=== PATIENT | female | born 1975 | race Caucasian/White ===

== ENCOUNTER 2019-08-28 09:25 | Outpatient (CLI) | payer OTHER, SELFPAY ==
--- NOTE | ~2019-08-28 | MM_ITS ---
EXAMINATION: MM screening heather BI w rich HISTORY: Screening mammogram TECHNIQUE: Craniocaudal and mediolateral oblique 3-D tomosynthesis images were obtained and synthetic 2-D images were generated. CAD analysis was submitted and interpreted. COMPARISON: Comparison to multiple prior studies sequentially, with oldest reviewed study dated 02/13. BREAST PARENCHYMAL COMPOSITION: The breasts are heterogeneously dense, which may obscure small masses . FINDINGS: There is no evidence of suspicious mass, calcification, or architectural distortion to sugg est malignancy in either breast. There has been no suspicious interval change. IMPRESSION: 1. No mammographic evidence of malignancy. 2. Recommend routine screening mammography in one year. BI-RADS Category 1: Negative Reviewed, dictated and finalized at location A. UITS ENGINEER
== END 2019-08-28 09:26 | disposition home or self-care (01) ==
LOC: CHSIMG 09:27
PROVIDERS: PCP Internal Medicine; Visit Provider Student in an Organized Health Care Education/Training Program
DX: Z12.31 Encounter for screening mammogram for malignant neoplasm of breast (principal)
CPT/HCPCS: 77063; 77067

== ENCOUNTER 2019-12-10 10:15 | Outpatient (CLI) | payer OTHER, SELFPAY ==
[2019-12-10 10:27] LABS: Add Urine Microscopic? NO; Appearance Urine Clear (Clear); Basophils Absolute Auto 0.06 K/mm3 (0.00-0.10); Basophils Percent Auto 0.9 % (0.0-1.0); Bilirubin Urine Negative (Negative); Blood Urine Negative (Negative); Color Urine Yellow (Yellow); Eosinophils Absolute Auto 0.56 K/mm3 (0.02-0.50); Eosinophils Percent Auto 8.6 % (1.0-6.0); Glucose Urine UA Negative (Negative); Hematocrit 41.3 % (35.0-49.0); Immature Granulocyte Absolute 0.02 K/mm3 (0.00-0.00); Immature Granulocyte Percent A 0.3 % (0.0-0.0); Ketones Urine Negative (Negative); Leukocyte Esterase Ur Negative (Negative); Lymphocytes Absolute Auto 1.77 K/mm3 (1.10-4.50); Lymphocytes Percent Auto 27.2 % (18.0-42.0); Mean Corpuscular HGB Conc 33.9 g/dL (32.0-36.0); Mean Corpuscular Hemoglobin 32.8 pg (27.0-31.0); Mean Corpuscular Volume 96.7 fL (78.0-102.0); Monocytes Absolute Auto 0.55 K/mm3 (0.10-0.90); Monocytes Percent Auto 8.4 % (2.0-11.0); Neutrophils Absolute Auto 3.6 K/mm3 (1.7-7.2); Neutrophils Percent Auto 54.6 % (50.0-70.0); Nitrate Urine Negative (Negative); Platelet Count Result 284 K/mm3 (150-420); Protein Urine Negative (Negative); Red Blood Count 4.27 M/mm3 (4.20-5.40); Red Cell Distribution Width 12.5 % (11.6-14.4); Specific Grav Ur >= 1.030 (1.010-1.020); Urobilinogen Urine 0.2 mg/dL (0.2-1.0); White Blood Count 6.5 K/mm3 (4.8-10.8); pH Urine 5.5 (5.0-8.0)
[2019-12-10 11:38] LABS: Alanine Aminotransferase 20 U/L (14-59); Albumin Level 3.8 g/dL (3.4-5.0); Alkaline Phosphatase 28 U/L (46-116); Anion Gap 14.5 mmol/L (7-16); Aspartate Amino Transferase 16 U/L (15-37); Bilirubin,Total 0.4 mg/dL (0.00-1.00); Blood Urea Nitrogen 17 mg/dL (7-18); Calcium 9.1 mg/dL (8.5-10.1); Carbon Dioxide 25 mmol/L (21-32); Chloride 105 mmol/L (98-108); Estimated Glomerular Filt Rate > 60; Glucose 94 mg/dL (70-99); Osmolality Calculated 291 mOsm/kg (285-295); Potassium 4.5 mmol/L (3.5-5.1); Sodium 140 mmol/L (136-145); Thyroid Stimulating Hormone 1.96 uIU/mL (0.36-3.74); Total Protein 6.7 g/dL (6.4-8.2)
[2019-12-10 11:44] LABS: CRP < 0.2 mg/dL (0.0-0.9)
[2019-12-13 22:18] LABS: Anti Cyclic Citrullinated Pept <16 Units (<20)
== END 2019-12-10 10:16 | disposition home or self-care (01) ==
PROVIDERS: PCP Internal Medicine; Visit Provider Internal Medicine
DX: I73.00 Raynaud's syndrome without gangrene (principal); M25.50 Pain in unspecified joint
CPT/HCPCS: 36415; 80053; 81003; 84443; 85025; 86038; 86140; 86200

== ENCOUNTER 2020-07-13 11:19 | Outpatient (CLI) | payer OTHER, SELFPAY ==
[2020-07-13 22:22] LABS: SARS-CoV-2 RNA PCR Negative
== END 2020-07-13 11:20 | disposition home or self-care (01) ==
LOC: CHSLAB 11:22
PROVIDERS: PCP Internal Medicine; Visit Provider Internal Medicine
DX: Z20.822 Contact with and (suspected) exposure to COVID-19 (principal)
CPT/HCPCS: C9803; U0003

== ENCOUNTER 2020-08-15 10:37 | Outpatient (CLI) | payer OTHER, SELFPAY ==
--- NOTE | ~2020-08-15 | XR_ITS ---
XR chest 2V DATE: 08/15/2020 10:54 INDICATION: Dyspnea TECHNIQUE: PA and lateral chest COMPARISON: 07/20/2011 two-view chest FINDINGS: Normal heart size. No hilar or mediastinal enlargement. No pulmonary infiltrate or consolid ation, pleural effusion or pulmonary vascular congestion or pneumothorax. Mild scoliosis and degenerative change of the thoracic spine. Surgical clips overlie the upper abdomen on the lateral view, most likely due to cholecystectomy. IMPRESSION: No active cardiopulmonary disease Reviewed, dictated and finalized at location A. CHAIN PULLER
[2020-08-15 10:58] LABS: Basophils Absolute Auto 0.08 K/mm3 (0.00-0.10); Basophils Percent Auto 0.9 % (0.0-1.0); Eosinophils Absolute Auto 0.74 K/mm3 (0.02-0.50); Hematocrit 45.4 % (35.0-49.0); Hemoglobin 14.6 g/dL (12.0-15.0); Immature Granulocyte Absolute 0.03 K/mm3 (0.00-0.00); Immature Granulocyte Percent A 0.3 % (0.0-0.0); Lymphocytes Absolute Auto 2.25 K/mm3 (1.10-4.50); Lymphocytes Percent Auto 24.4 % (18.0-42.0); Mean Corpuscular HGB Conc 32.2 g/dL (32.0-36.0); Mean Corpuscular Hemoglobin 31.6 pg (27.0-31.0); Mean Corpuscular Volume 98.3 fL (78.0-102.0); Mean Platelet Volume 9.1 fl (9.2-11.8); Monocytes Absolute Auto 0.63 K/mm3 (0.10-0.90); Monocytes Percent Auto 6.8 % (2.0-11.0); Neutrophils Absolute Auto 5.5 K/mm3 (1.7-7.2); Neutrophils Percent Auto 59.6 % (50.0-70.0); Platelet Count Result 347 K/mm3 (150-420); Red Blood Count 4.62 M/mm3 (4.20-5.40); Red Cell Distribution Width 12.4 % (11.6-14.4); White Blood Count 9.2 K/mm3 (4.8-10.8)
[2020-08-15 11:34] LABS: D Dimer 0.22 mg/L (0.19-0.50)
[2020-08-15 11:36] LABS: BNP 6.1 pg/mL (0-100)
[2020-08-15 11:54] LABS: Alanine Aminotransferase 29 U/L (14-59); Albumin Level 4.3 g/dL (3.4-5.0); Alkaline Phosphatase 34 U/L (46-116); Anion Gap 10 mmol/L (8-16); Aspartate Amino Transferase 18 U/L (15-37); Bilirubin,Total 0.4 mg/dL (0.00-1.00); Blood Urea Nitrogen 13 mg/dL (7-18); CRP < 0.5 mg/dL (0.0-0.9); Calcium 9.6 mg/dL (8.5-10.1); Carbon Dioxide 28 mmol/L (21-32); Chloride 102 mmol/L (98-108); Estimated Glomerular Filt Rate 56; Glucose 89 mg/dL (70-99); Osmolality Calculated 289 mOsm/kg (285-295); Potassium 4.4 mmol/L (3.5-5.1); Sodium 140 mmol/L (136-145); Total Protein 8.1 g/dL (6.4-8.2)
[2020-08-17 13:11] LABS: Reference Lab Test Result NEGATIVE
== END 2020-08-15 10:38 | disposition home or self-care (01) ==
LOC: CHSLAB 10:39
PROVIDERS: PCP Internal Medicine; Visit Provider Internal Medicine
DX: R06.00 Dyspnea, unspecified (principal); R06.2 Wheezing; R53.83 Other fatigue
CPT/HCPCS: 36415; 71046; 80053; 83880; 85025; 85380; 86140; 86769

== ENCOUNTER 2020-08-26 08:29 | Outpatient (CLI) | payer OTHER, SELFPAY ==
--- NOTE | 2020-08-26 08:41 | ECHO_ITS ---
Patient Info Name: Ree Haider Age: 44 years : 1975 Gender: Female Ht: 66 in Wt: 160 lbs BSA: 1.85 m2 HR: 69 bpm BP: 103 / 62 mmHg Heart Rhythm: Sinus Rhythm Technical Quality: Good Exam Date: 08/26/2020 9:46 AM Exam Location: [facility] Patient Status: Outpatient Admit Date: 08/26/2020 Staff Ordering Physician: Eric Mar MD Physicist [place]: Lilly Briscoe RDCS Attending Provider: Eric Mar MD Exam Type: CA echo doppler color flow Study Info Indications R06.00 - Dyspnea, unspecified Complete two-dimensional, color flow and Doppler transthoracic echocardiogram is performed. Strain analysis performed. History/Risk Factors Hypertension: No Dyslipidemia: No Congenital Heart Disease (CHD): No Peripheral Arterial Disease (PAD): No Myocardial Infarction (UT): No Chronic Lung Disease: No Renal Disease: No Coronary Artery Disease (CAD) No Congestive Heart Failure (CHF): No Cardiomyopathy/LV Systolic Dysfunction: No Date of Last Tobacco Use: 08/26/2020 Diabetes Mellitus: No COPD: No Tobacco Use: Current - Every Day If Any Current, Tobacco Type: Cigarettes If Current - Every Day \T\ Cigarettes, Amount: Light Tobacco Use (<10/day) Cerebrovascular Disease: No Deep Vein Thrombosis (DVT): None Dialysis: None Frailty Scale (CSHA): 1: Very Fit Cardiac Arrest: No Summary 1. Complete two-dimensional, color flow and Doppler transthoracic echocardiogram is performed. 2. Left ventricular chamber dimension is normal. 3. Left ventricular systolic function is normal, estimated at 60-65%. 4. The left ventricular diastolic function is normal. 5. E/e' 7 is not elevated. Recommendations * Smoking cessation counseling is recommended for this patient. Left Ventricle E/e' 7 is not elevated. Left ventricular chamber dimension is normal. Left ventricular systolic function is normal, estimated at 60-65%. The left ventricular diastolic function is normal. Right Ventricle Right ventricular chamber dimension is normal. Right ventricular systolic function is normal. Left Atria Left atrial chamber dimension is normal. Right Atria Right atrial chamber dimension is normal. Aortic Valve The aortic valve is trileaflet. There is no aortic valve stenosis. There is no aortic valve regurgitation. Pulmonic Valve There is no pulmonic regurgitation. Mitral Valve There is no mitral valve stenosis. There is no mitral valve regurgitation. Pericardium/Pleural There is no pericardial effusion. Inferior Vena Cava Normal inferior vena cava with >50% collapse upon inspiration consistent with normal right atrial pressure, 5 mmHg. Aorta The aortic root size at the sinus of Valsalva is normal. Left Ventricular Outflow Tract Name Value Normal LVOT 2D LVOT Diameter 2.0 cm LVOT Doppler LVOT Peak Velocity 118 cm/s LVOT Peak Gradient 6 mmHg LVOT Mean Gradient 3 mmHg LVOT VTI 24 cm
== END 2020-08-26 08:30 | disposition home or self-care (01) ==
LOC: CHSIMG 08:31
PROVIDERS: PCP Internal Medicine; Visit Provider Internal Medicine
DX: R06.00 Dyspnea, unspecified (principal); J44.9 Chronic obstructive pulmonary disease, unspecified
CPT/HCPCS: 93306; 94060; 94726; 94729; 95012

== ENCOUNTER 2020-08-31 10:51 | Outpatient (CLI) | payer OTHER, SELFPAY ==
--- NOTE | ~2020-08-31 | MM_ITS ---
EXAMINATION: MM screening heather BI w rich HISTORY: Screening TECHNIQUE: Craniocaudal and mediolateral oblique 3-D tomosynthesis images were obtained and synthetic 2-D images were generated. CAD analysis was submitted and interpreted. COMPARISON: Comparison to multiple prior studies sequentially, with oldest reviewed study dated 02/13. BREAST PARENCHYMAL COMPOSITION: The breasts are heterogeneously dense, which may obscure small masses . FINDINGS: There is no evidence of suspicious mass, calcification, or architectural distortion to sugg est malignancy in either breast. There has been no suspicious interval change. IMPRESSION: 1. No mammographic evidence of malignancy. 2. Recommend routine screening mammography in one year. BI-RADS Category 1: Negative Reviewed, dictated and finalized at location A. ICATION SUPPORT MANAGER
== END 2020-08-31 10:52 | disposition home or self-care (01) ==
LOC: CHSIMG 10:52
PROVIDERS: PCP Internal Medicine; Visit Provider Student in an Organized Health Care Education/Training Program
DX: Z12.31 Encounter for screening mammogram for malignant neoplasm of breast (principal)
CPT/HCPCS: 77063; 77067

== ENCOUNTER 2021-09-14 12:47 | Outpatient (CLI) | payer OTHER, SELFPAY ==
--- NOTE | ~2021-09-14 | MM_ITS ---
EXAMINATION: MM screening [facility] BI w rich HISTORY: Screening mammogram TECHNIQUE: Craniocaudal and mediolateral oblique 3-D tomosynthesis images were obtained and synthetic 2-D images were generated. CAD analysis was submitted and interpreted. COMPARISON: 08/31/2020, 08/28/2019, 08/24/2018 BREAST PARENCHYMAL COMPOSITION: The breasts are heterogeneously dense, which may obscure small masses . FINDINGS: There is no suspicious mass, calcification, or architectural distortion to suggest malignan cy in either breast. There has been no suspicious interval change. IMPRESSION: 1. No mammographic evidence of malignancy. 2. Recommend routine screening mammography in one year. BI-RADS Category 1: Negative Reviewed, dictated and finalized at location A.
== END 2021-09-14 12:48 | disposition home or self-care (01) ==
LOC: CHSIMG 12:49
PROVIDERS: PCP Internal Medicine; Visit Provider Student in an Organized Health Care Education/Training Program
DX: Z12.31 Encounter for screening mammogram for malignant neoplasm of breast (principal)
CPT/HCPCS: 77063; 77067

== ENCOUNTER 2021-11-02 00:03 | Day surgery (SDC) | payer OTHER, SELFPAY ==
[2021-10-19 10:51] VITALS: BMI 24.9
[2021-11-02 06:46] VITALS: BP 117/65; PULSE 98; RESP 16; TEMP 36.1; O2SAT 100
[2021-11-02] MEDS: LACTATED RINGERS 1,000 ML 150 ML IV CONT (06:59)
--- NOTE | 2021-11-02 07:47 | WPDANESEPPF ---
Anes - Initial Pre Proc Eval Procedure: Operation Date: 11/02/21 08:00 Proposed Procedures p Screening Colonoscopy - Celso Engel MD Date/Time: 11/02/21 07:47 Surgeon: Celso Engel MD Pre Op Diagnosis: neoplasm screening Patient Data Age: 45 Gender: F Height: 1.68 m Weight: 70.2 kg Last Vital Signs Temp 97 F L 11/02/21 06:46 Pulse 98 11/02/21 06:46 Resp 16 11/02/21 06:46 BP 117/65 11/02/21 06:46 Pulse Ox 100 11/02/21 06:46 Allergies Allergy/AdvReac Type Severity Reaction Status Date / Time aspirin AdvReac Intermediate N&V Verified 11/02/21 06:45 Home Medications Medication Instructions Recorded Confirmed Type calcium carbonate 600 mg calcium 600 mg PO DAILY 07/23/19 10/19/21 History (1,500 mg) tablet multivitamin 1 tablet PO DAILY 07/23/19 10/19/21 History albuterol sulfate 90 mcg/actuation 1 inh INHALATION Q4-6H PRN 07/29/20 11/02/21 History breath activated powder inhaler fluticasone propionate 50 1 spray INTRANASAL BID 09/01/21 11/02/21 History mcg/actuation nasal spray,suspension montelukast 10 mg tablet 10 mg PO DAILY 09/01/21 10/19/21 History budesonide-formoterol [Symbicort] 1 inh INHALATION DAILY 10/19/21 10/19/21 History famotidine 40 mg PO DAILY 10/19/21 10/19/21 History fexofenadine 180 mg PO DAILY 10/19/21 10/19/21 History Patient hx anesthesia problems: none Family hx anesthesia problems: none Results Review: All pre-operative results and documents have been reviewed as part of the pre-operative evaluation. [facility] Past Medical History Medical History Asthma HPV test positive Surgical History Surgical History History of cholecystectomy History of tubal ligation Family History Family History Mother Family history of pancreatic cancer Father Family history of malignant neoplasm of urinary bladder Family history of hypercholesterolemia Hypertension Grandparent Family history of hypercholesterolemia Hypertension Cerebrovascular accident Carcinoma of colon, Onset Age: 56 Family history of genetic disorder Social History Social History Years smoked: 20 Smoking status: Current every day smoker Tobacco type: cigarettes Second hand tobacco smoke exposure: No Alcohol intake: current Drinks per week: 6 Substance use type: does not use Living arrangements: with family Spiritual care concerns: No Anes - Eval Final PreProcedure Day of Procedure 11/02/21 07:47 Patient weight: normal Heart: regular rate and rhythm Lungs: clear to auscultation Airway: Mallampati scale class II Neurological: alert and oriented Last oral intake: >/= 8 hours ASA classification: II Emergent: no Anesthetic plan: proceed Anesthesia type and monitoring: general GIVS and standard monitoring Results Review: All pre-operative results and documents have been reviewed as part of the pre-operative evaluation. Informed Consent: The patient's anesthetic plan and its attendant risks and benefits were discussed with the patient/family/POA. Questions were solicited and answers provided to the satisfaction of the patient/family/POA.
--- NOTE | 2021-11-02 07:52 | PM.HPGS ---
History of Present Illness History of Present Illness Consent: Risks, benefits, and alternatives have been discussed and questions answered. Patient agrees to proceed with procedure. Chief complaint: neoplasm screening Narrative: Ree Haider is a 45 year old female here for first screening colonoscopy Review of Systems Constitutional: Constitutional: Denies headache(s) and Denies weakness Eyes: Eyes: Denies blurry vision ENT: Reports Normal hearing present, Denies headache(s) and Denies neck pain Cardiovascular: Cardiovascular: Denies chest pain and Denies dyspnea Respiratory: Respiratory: Denies dyspnea Gastrointestinal: Gastrointestinal: Reports no additional gastrointestinal complaints Genitourinary: Genitourinary: Denies dysuria Musculoskeletal: Musculoskeletal: Denies neck pain Integumentary/Breasts: Skin/Breast: Denies dry skin Neurologic: Reports Normal hearing present, Denies headache(s) and Denies weakness Psychiatric: Psychiatric: Denies anxiety Endocrine: Endocrine: Denies change in body appearance Hematologic/Lymphatic: Hematologic/Lymphatic: Denies easy bleeding Allergic/Immunologic: Allergic/Immunologic: Denies urticaria PMFSH Past Medical History Medical History (Updated 11/02/21 @ 07:53 by Celso Engel MD) Asthma Colon cancer screening HPV test positive Surgical History Surgical History History of cholecystectomy History of tubal ligation Family History Family History Mother Family history of pancreatic cancer Father Family history of malignant neoplasm of urinary bladder Family history of hypercholesterolemia Hypertension Grandparent Family history of hypercholesterolemia Hypertension Cerebrovascular accident Carcinoma of colon, Onset Age: 54 Family history of genetic disorder Social History Social History Years smoked: 20 Smoking status: Current every day smoker Tobacco type: cigarettes Second hand tobacco smoke exposure: No Alcohol intake: current Drinks per week: 6 Substance use type: does not use Living arrangements: with family Spiritual care concerns: No Meds Home Medications and Allergies Home Medications Medication Instructions Recorded Confirmed Type calcium carbonate 600 mg calcium 600 mg PO DAILY 07/23/19 10/19/21 History (1,500 mg) tablet multivitamin 1 tablet PO DAILY 07/23/19 10/19/21 History albuterol sulfate 90 mcg/actuation 1 inh INHALATION Q4-6H PRN 07/29/20 11/02/21 History breath activated powder inhaler fluticasone propionate 50 1 spray INTRANASAL BID 09/01/21 11/02/21 History mcg/actuation nasal spray,suspension montelukast 10 mg tablet 10 mg PO DAILY 09/01/21 10/19/21 History budesonide-formoterol [Symbicort] 1 inh INHALATION DAILY 10/19/21 10/19/21 History famotidine 40 mg PO DAILY 10/19/21 10/19/21 History fexofenadine 180 mg PO DAILY 10/19/21 10/19/21 History Allergies Allergy/AdvReac Type Severity Reaction Status Date / Time aspirin AdvReac Intermediate N&V Verified 11/02/21 06:45 Vital Signs Vital Signs - 24 hr 11/02/21 06:46 Temperature 97 F L Pulse Rate 98 Respiratory Rate 16 Blood Pressure 117/65 Pulse Oximetry 100 Exam Const: General: comfortable and no acute distress HENMT: General nose exam: Normal nares present Eyes: General: appearance normal, both eyes and all related structures Neck: Neck: no JVD Resp: Auscultation: clear to auscultation bilaterally Cardio: Rate: regular rate Rhythm: regular rhythm GI: Inspection: non-distended GI Palp: Yes Soft to palpation Skin: General skin exam: normal color Neuro: General: gait normal Speech: normal speech Extrem: General: normal to inspection Psych: Mental Status: mental status grossly normal Assessment and
[2021-11-02 08:17] VITALS: BP 104/68; PULSE 81; RESP 22; O2SAT 100
[2021-11-02 08:27] VITALS: BP 112/57; PULSE 60; RESP 14; O2SAT 100
[2021-11-02 08:37] VITALS: BP 107/65; PULSE 68; RESP 19; O2SAT 100
== END 2021-11-02 08:54 | disposition home or self-care (01) ==
PROVIDERS: PCP Internal Medicine; Visit Provider Internal Medicine Gastroenterology
PROC: 0DJD8ZZ Inspection of Lower Intestinal Tract, Via Natural or Artificial Opening Endoscopic (ICD-10-PCS; CPT 45378; principal; 2021-11-02 08:00)
DX: Z12.11 Encounter for screening for malignant neoplasm of colon (principal); D12.3 Benign neoplasm of transverse colon; K64.8 Other hemorrhoids; J45.909 Unspecified asthma, uncomplicated; F17.210 Nicotine dependence, cigarettes, uncomplicated
CPT/HCPCS: 45385; 88305; J2704; J7120

== ENCOUNTER 2022-09-16 14:39 | Outpatient (CLI) | payer OTHER, SELFPAY ==
--- NOTE | ~2022-09-16 | MM_ITS ---
EXAMINATION: MM screening heather BI w rich HISTORY: Screening mammogram TECHNIQUE: Craniocaudal and mediolateral oblique 3-D tomosynthesis images were obtained and synthetic 2-D images were generated. CAD analysis was submitted and interpreted. COMPARISON: 09/12/2021, 08/31/2020, 08/28/2019 bilateral screening mammogram examinations BREAST PARENCHYMAL COMPOSITION: The breasts are heterogeneously dense, which may obscure small masses . FINDINGS: There is no evidence of suspicious mass, calcification, or architectural distortion to sugg est malignancy in either breast. There has been no suspicious interval change. IMPRESSION: 1. No mammographic evidence of malignancy. 2. Recommend routine screening mammography in one year. BI-RADS Category 1: Negative Reviewed, dictated and finalized at location A.
== END 2022-09-16 14:40 | disposition home or self-care (01) ==
LOC: CHSIMG 14:41
PROVIDERS: PCP Internal Medicine; Visit Provider Obstetrics & Gynecology
DX: Z12.31 Encounter for screening mammogram for malignant neoplasm of breast (principal)
CPT/HCPCS: 77063; 77067

== ENCOUNTER 2022-10-22 08:49 | Outpatient (CLI) | payer OTHER, SELFPAY ==
--- NOTE | ~2022-10-22 | XR_ITS ---
EXAM: XR foot LT min 3V DATE: 10/22/2022 09:12 HISTORY: RECENT PLANTAR FACITITS, HEEL/ GENERAL FOOT PAIN SINCE 09/02 . COMPARISON: None available. FINDINGS: Normal mineralization. No fracture or dislocation. No lytic or blastic lesion. Joint space s are maintained. Minimal plantar enthesopathy. No erosion or periosteal change. Soft tissue swelling over the proximal and medial aspect of the plantar arch. IMPRESSION: Minimal plantar enthesopathy. Soft tissue swelling over the proximal and medial aspect of the plantar arch. Reviewed, dictated and finalized at location K. IMPRESSION: Minimal plantar enthesopathy. Soft tissue swelling over the proxima l and medial aspect of the plantar arch.
[2022-10-22 09:06] LABS: Basophils Absolute Auto 0.08 K/mm3 (0.00-0.10); Basophils Percent Auto 1.1 % (0.0-1.0); Eosinophils Absolute Auto 0.48 K/mm3 (0.02-0.50); Eosinophils Percent Auto 6.9 % (1.0-6.0); Hematocrit 36.5 % (35.0-49.0); Immature Granulocyte Absolute 0.02 K/mm3 (0.00-0.00); Immature Granulocyte Percent A 0.3 % (0.0-0.0); Lymphocytes Absolute Auto 2.19 K/mm3 (1.10-4.50); Lymphocytes Percent Auto 31.5 % (18.0-42.0); Mean Corpuscular HGB Conc 32.9 g/dL (32.0-36.0); Mean Corpuscular Hemoglobin 31.9 pg (27.0-31.0); Mean Corpuscular Volume 97.1 fL (78.0-102.0); Mean Platelet Volume 9.3 fl (9.2-11.8); Monocytes Absolute Auto 0.62 K/mm3 (0.10-0.90); Monocytes Percent Auto 8.9 % (2.0-11.0); Neutrophils Absolute Auto 3.6 K/mm3 (1.7-7.2); Neutrophils Percent Auto 51.3 % (50.0-70.0); Platelet Count Result 312 K/mm3 (150-420); Red Blood Count 3.76 M/mm3 (4.20-5.40); Red Cell Distribution Width 13.2 % (11.6-14.4)
[2022-10-22 09:30] LABS: Appearance Urine Clear (Clear); Bilirubin Urine Negative (Negative); Blood Urine Negative (Negative); Color Urine Light Yellow (Yellow); Glucose Urine UA Negative (Negative); Ketones Urine Negative (Negative); Leukocyte Esterase Ur Negative (Negative); Nitrate Urine Negative (Negative); Protein Urine Negative (Negative); Specific Grav Ur >= 1.030 (1.010-1.020); Urobilinogen Urine 0.2 mg/dL (0.2-1.0)
[2022-10-22 09:34] LABS: Add Urine Microscopic? NO; Alanine Aminotransferase 19 U/L (14-59); Albumin Level 3.4 g/dL (3.4-5.0); Alkaline Phosphatase 32 U/L (46-116); Anion Gap 6 mmol/L (8-16); Aspartate Amino Transferase 13 U/L (15-37); Bilirubin,Total 0.2 mg/dL (0.00-1.00); Blood Urea Nitrogen 19 mg/dL (7-18); Calcium 8.9 mg/dL (8.5-10.1); Carbon Dioxide 31 mmol/L (21-32); Chloride 106 mmol/L (98-108); Cholesterol 164 mg/dL (0-200); Estimated Glomerular Filt Rate > 60; Glucose 97 mg/dL (70-99); HDL Direct 59 mg/dL (40-60); LDL Cholesterol Calculated 96 mg/dL (<130); Osmolality Calculated 298 mOsm/kg (285-295); Potassium 4.5 mmol/L (3.5-5.1); Sodium 143 mmol/L (136-145); Thyroid Stimulating Hormone 1.08 uIU/mL (0.36-3.74); Total Protein 5.8 g/dL (6.4-8.2); Triglycerides 47 mg/dL (0-150)
== END 2022-10-22 08:50 | disposition home or self-care (01) ==
LOC: CHSIMG 08:51
PROVIDERS: PCP Internal Medicine; Visit Provider Internal Medicine
DX: Z00.00 Encounter for general adult medical examination without abnormal findings (principal); M79.672 Pain in left foot
CPT/HCPCS: 36415; 73630; 80053; 80061; 81003; 84443; 85025

== ENCOUNTER 2022-11-29 14:53 | Outpatient (CLI) | payer OTHER, SELFPAY ==
--- NOTE | ~2022-11-29 | US_ITS ---
EXAMINATION: US soft tissue abdomen DATE: 11/29/2022 15:10 INDICATION: Discolored palpable abnormality in the periumbilical region TECHNIQUE: Multiple grayscale and Doppler ultrasound images of the periumbilical region of concern we re obtained. COMPARISON: None FINDINGS: There is increased vascular flow associated with a very superficial 13 x 12 x 5 mm hypoechoic lesion with irregular margins at the region of concern. There is posterior acoustic enhancement in the regio n of the lesion of concern which is located within the superficial subdermal fat with inward bulging of the junction between the more superficial dermal fat and the underlying more hypoechoic subcutaneo us fat. IMPRESSION: 1. Nonspecific 13 x 12 x 5 mm irregular hypoechoic lesion at the region of concern with lesser flow o n color Doppler. This could be either infectious/inflammatory in etiology, malignant or potentially r elated to a vascular malformation. Reviewed, dictated and finalized at location B. IMPRESSION: 1. Nonspecific 13 x 12 x 5 mm irregular hypoechoic lesion at the region of conc giovani with lesser flow on color Doppler. This could be either infectious/inflamma tory in etiology, malignant or potentially related to a vascular malformation.
== END 2022-11-29 14:54 | disposition home or self-care (01) ==
LOC: CHSIMG 14:55
PROVIDERS: PCP Internal Medicine; Visit Provider Nurse Practitioner Family
DX: K42.9 Umbilical hernia without obstruction or gangrene (principal); R10.9 Unspecified abdominal pain
CPT/HCPCS: 76705

== ENCOUNTER 2023-07-08 13:26 | Outpatient (CLI) | payer OTHER, SELFPAY ==
--- NOTE | ~2023-07-08 | XR_ITS ---
Clinical Indication: Cough, asthma PA and lateral views of the chest: Comparison: 08/15/2020 Findings: The lungs are clear, without evidence of focal consolidation or pleural effusion. Cardiome diastinal silhouette is within normal limits. Bones and soft tissues are unremarkable. Impression: Normal chest. Reviewed, dictated and finalized at [facility]. MENT MASON Impression: Normal chest.
[2023-07-08 13:50] LABS: Basophils Absolute Auto 0.06 K/mm3 (0.00-0.10); Basophils Percent Auto 0.8 % (0.0-1.0); Eosinophils Absolute Auto 0.19 K/mm3 (0.02-0.50); Eosinophils Percent Auto 2.6 % (1.0-6.0); Hematocrit 42.4 % (35.0-49.0); Hemoglobin 14.1 g/dL (12.0-15.0); Immature Granulocyte Absolute 0.01 K/mm3 (0.00-0.00); Immature Granulocyte Percent A 0.1 % (0.0-0.0); Lymphocytes Absolute Auto 2.09 K/mm3 (1.10-4.50); Lymphocytes Percent Auto 28.8 % (18.0-42.0); Mean Corpuscular HGB Conc 33.3 g/dL (32.0-36.0); Mean Corpuscular Hemoglobin 31.6 pg (27.0-31.0); Mean Corpuscular Volume 95.1 fL (78.0-102.0); Mean Platelet Volume 9.8 fl (9.2-11.8); Monocytes Percent Auto 9.6 % (2.0-11.0); Neutrophils Absolute Auto 4.2 K/mm3 (1.7-7.2); Neutrophils Percent Auto 58.1 % (50.0-70.0); Platelet Count Result 294 K/mm3 (150-420); Red Blood Count 4.46 M/mm3 (4.20-5.40); Red Cell Distribution Width 12.6 % (11.6-14.4); White Blood Count 7.3 K/mm3 (4.8-10.8)
[2023-07-12 02:24] LABS: Immunoglobulin E 201 kU/L (<=114)
== END 2023-07-08 13:27 | disposition home or self-care (01) ==
LOC: CHSLAB 13:29
PROVIDERS: PCP Internal Medicine; Visit Provider Nurse Practitioner Family
DX: J45.909 Unspecified asthma, uncomplicated (principal); R06.09 Other forms of dyspnea
CPT/HCPCS: 36415; 71046; 82785; 85025; 86003

== ENCOUNTER 2023-09-20 12:44 | Outpatient (CLI) | payer OTHER, SELFPAY ==
--- NOTE | ~2023-09-20 | MM_ITS ---
EXAMINATION: MM screening heather BI w rich HISTORY: Screening TECHNIQUE: Craniocaudal and mediolateral oblique 3-D tomosynthesis images were obtained and synthetic 2-D images were generated. CAD analysis was submitted and interpreted. COMPARISON: Comparison to multiple prior studies sequentially, with oldest reviewed study dated 05/03. BREAST PARENCHYMAL COMPOSITION: Dense: The breasts are heterogeneously dense, which may obscure small masses FINDINGS: The right breast is stable without evidence for malignancy. Stable mass lower inner quadran t of the left breast, middle third. IMPRESSION: 1. Stable left breast mass. 2. Additional mammographic views and possible breast ultrasound are recommended. BI-RADS Category 0: Incomplete: Needs additional imaging evaluation. Reviewed, dictated and finalized at location A. IMPRESSION: 1. Stable left breast mass. 2. Additional mammographic views and possible breast ultrasound are recommended . BI-RADS Category 0: Incomplete: Needs additional imaging evaluation.
== END 2023-09-20 12:45 | disposition home or self-care (01) ==
LOC: CHSIMG 12:45
PROVIDERS: PCP Internal Medicine; Visit Provider Internal Medicine
DX: Z12.31 Encounter for screening mammogram for malignant neoplasm of breast (principal); R92.8 Other abnormal and inconclusive findings on diagnostic imaging of breast
CPT/HCPCS: 77063; 77067

== ENCOUNTER 2023-09-29 09:27 | Outpatient (CLI) | payer OTHER, SELFPAY ==
--- NOTE | ~2023-09-29 | MMUS_ITS ---
EXAMINATION: MM diagnostic heather LT w rich, US breast LT complete HISTORY: Left breast mass TECHNIQUE: Additional 3-D tomosynthesis images of left breast were performed and synthetic 2-D images were generated. CAD analysis was submitted and interpreted. High resolution complete left breast ult rasound examination including all 4 quadrants and subareolar area was performed. (The entire left maryam ast was examined by ultrasound because the PACs system was down, the current and prior mammograms cou ld not be viewed on mammography monitors at the time of the patient's examinations.) COMPARISON: Serial mammograms dating back to 08/31/2020 FINDINGS: MAMMOGRAPHIC FINDINGS: Irregular approximately 2.7 x 4.7 mm mass is noted in the lower inner quadrant of the left breast at mid to posterior depth. ULTRASOUND: 6:00 3 cm from nipple: Parallel oval circumscribed 3.3 x 1.7 x 5.5 mm hypoechoic lesion without shado wing or internal vascularity, benign in appearance Left breast 7:00 4 cm from nipple: Mildly irregular incompletely circumscribed oval 3.2 x 5 x 4.7 mm complex lesion is noted. Due to the irregular mammographic and sonographic margins and incomplete cir cumcision, ultrasound-guided biopsy is recommended. IMPRESSION: 1. 5 mm complex lesion at left breast 7:00 position 4 cm from nipple 2. Ultrasound-guided biopsy of left breast 7:00 lesion is recommended BI-RADS category 4, suspicious findings. Dr. Bo telephoned the report and ultrasound-guided biopsy recommendation on 09/29/2023 [address] Mar Reviewed, dictated and finalized at location A. IMPRESSION: 1. 5 mm complex lesion at left breast 7:00 position 4 cm from nipple 2. Ultrasound-guided biopsy of left breast 7:00 lesion is recommended BI-RADS category 4, suspicious findings. Dr. Bo telephoned the report and ultrasound-guided biopsy recommendation on at [address] Mar
== END 2023-09-29 09:28 | disposition home or self-care (01) ==
LOC: CHSIMG 09:29
PROVIDERS: PCP Internal Medicine; Visit Provider Internal Medicine
DX: N63.20 Unspecified lump in the left breast, unspecified quadrant (principal); R92.8 Other abnormal and inconclusive findings on diagnostic imaging of breast
CPT/HCPCS: 76641; 77061; 77065; G0279

== ENCOUNTER 2024-01-20 11:07 | Outpatient (CLI) | payer OTHER, SELFPAY ==
[2024-01-20 11:35] LABS: Basophils Absolute Auto 0.05 K/mm3 (0.00-0.10); Eosinophils Absolute Auto 0.27 K/mm3 (0.02-0.50); Eosinophils Percent Auto 5.3 % (1.0-6.0); Hematocrit 39.8 % (35.0-49.0); Hemoglobin 13.3 g/dL (12.0-15.0); Immature Granulocyte Absolute 0.01 K/mm3 (0.00-0.00); Immature Granulocyte Percent A 0.2 % (0.0-0.0); Lymphocytes Absolute Auto 2.36 K/mm3 (1.10-4.50); Lymphocytes Percent Auto 46.5 % (18.0-42.0); Mean Corpuscular HGB Conc 33.4 g/dL (32-36); Mean Corpuscular Hemoglobin 30.9 pg (27.0-31.0); Mean Corpuscular Volume 92.3 fL (78.0-102.0); Mean Platelet Volume 9.1 fl (9.2-11.8); Monocytes Absolute Auto 0.36 K/mm3 (0.10-0.90); Monocytes Percent Auto 7.1 % (2.0-11.0); Neutrophils Absolute Auto 2.03 K/mm3 (1.70-7.20); Neutrophils Percent Auto 39.9 % (50.0-70.0); Platelet Count Result 303 K/mm3 (150-420); Red Blood Count 4.31 M/mm3 (4.20-5.40); Red Cell Distribution Width 13.2 % (11.6-14.4); White Blood Count 5.1 K/mm3 (4.8-10.8)
[2024-01-20 12:08] LABS: Iron 87 ug/dL (50-170); Percent Iron Saturation 25 % (12-57); Vitamin B12 268 pg/mL (193-986)
[2024-01-25 11:18] LABS: Vitamin D 1,25 (OH)2 Total 61 pg/mL (18-72); Vitamin D2 1,25 (OH)2 <8 pg/mL; Vitamin D3 1,25 (OH)2 61 pg/mL
== END 2024-01-20 11:08 | disposition home or self-care (01) ==
LOC: CHSLAB 11:09
PROVIDERS: PCP Internal Medicine; Visit Provider Nurse Practitioner Family
DX: J30.9 Allergic rhinitis, unspecified (principal); J45.909 Unspecified asthma, uncomplicated; R53.83 Other fatigue
CPT/HCPCS: 36415; 82607; 82652; 82746; 83540; 83550; 85025

== ENCOUNTER 2024-02-15 13:43 | Emergency (ER) | payer OTHER, SELFPAY ==
[2024-02-15 13:43] VITALS: PULSE 92; RESP 16; TEMP 36.4; O2SAT 99
--- NOTE | 2024-02-15 13:59 | ED.SKABFB ---
HPI - Skin/Abscess/Foreign Bdy General Chief complaint: Skin/Abscess/Foreign Body Stated complaint: abdominal hernia with pain Time Seen by Provider: 02/15/24 13:53 Source: patient Mode of arrival: ambulatory Limitations: no limitations History of Present Illness HPI narrative: this is 48-year-old female who presents with nonfluctuant bread firm area just above her umbilicus with no drainage there is some warmth and tenderness with palpation with no fever chills. Patient has a history of cholecystectomy months ago and has this area that initially was a pea sized and has increased over the last several months. complaint: abscess/boil Onset (ago): month(s) Severity: mild Related Data Home Medications Medication Instructions Recorded Confirmed multivitamin (Daily Multi-Vitamin 1 tablet PO DAILY 07/23/19 12/13/23 tablet) albuterol sulfate 90 mcg/actuation 1 inh inhalation Q4-6H PRN 07/29/20 12/13/23 breath activated powder inhaler Shortness Of Breath fluticasone propionate 50 1 spray intranasal BID 09/01/21 12/13/23 mcg/actuation nasal spray,suspension (Flonase Allergy Relief) montelukast 10 mg tablet 10 mg PO DAILY 09/01/21 12/13/23 (Singulair) fexofenadine 180 mg tablet 180 mg PO DAILY 10/19/21 12/13/23 bupropion HCl 150 mg tablet,12 hr 150 mg PO DAILY 12/20/22 12/13/23 sustained-release escitalopram oxalate 20 mg tablet 20 mg PO DAILY 12/20/22 12/13/23 cholecalciferol (vitamin D3) 25 25 mcg PO DAILY 06/09/23 12/13/23 mcg (1,000 unit) capsule famotidine 40 mg tablet 20 mg PO DAILY 10/18/23 12/13/23 Allergies Allergy/AdvReac Type Severity Reaction Status Date / Time Sulfa (Sulfonamide Allergy Severe Unknown Verified 12/13/23 09:11 Antibiotics) aspirin Allergy Severe Unknown Uncoded 10/18/23 13:32 Review of Systems Review of Systems: All systems reviewed & are unremarkable except as noted in HPI and below PMFSH Past Medical History Medical History Asthma Colon cancer screening Depression with anxiety GERD (gastroesophageal reflux disease) HPV test positive Surgical History Surgical History History of cholecystectomy History of tonsillectomy History of tubal ligation Family History Family History Mother Family history of pancreatic cancer Father Family history of malignant neoplasm of urinary bladder Family history of hypercholesterolemia Hypertension Alcoholism Depression Grandparent Family history of hypercholesterolemia Hypertension Cerebrovascular accident Carcinoma of colon, Onset Age: 56 Family history of genetic disorder Sibling Depression Grandparent Alcoholism Cancer Grandparent Alcoholism Hypertension Depression Heart disease Cerebrovascular accident Social History Social History Smoking packs per day: 0.5 Smoking cigarettes per day: 10.0 Years smoked: 13 Smoking pack-years: 6.50 Smoking status: Current every day smoker Tobacco type: cigarettes Second hand tobacco smoke exposure: No Alcohol intake: current Drinks per week: 6 Substance use type: does not use Living arrangements: with family Occupation/Education: occupation Additional occupation/education comments: [employer] Spiritual care concerns: No Exam Const: General: healthy appearing, no acute distress and alert Nutritional Appearance: well nourished Orientation/consciousness: patient oriented x3 Chest: Chest palpation & inspection: normal inspection of the chest Resp: Effort & Inspection: normal respiratory effort Auscultation: clear to auscultation bilaterally Cardio: Rate: regular rate Rhythm: regular rhythm GI: Auscultation: normal bowel sounds Skin: Wounds: wounds noted Other: Red warm tender area nonfluctuan
[2024-02-15 14:03] VITALS: BP 115/84
[2024-02-15] MEDS: cefTRIAXone 1 GM, LIDOCAINE HCL 1% LOCAL INJ 2.1 ML IM (14:14)
== END 2024-02-15 14:17 | disposition home or self-care (01) ==
PROVIDERS: Emergency Provider Emergency Medicine; PCP Internal Medicine
DX: L02.216 Cutaneous abscess of umbilicus (principal); F17.210 Nicotine dependence, cigarettes, uncomplicated
CPT/HCPCS: 96372; 99283; J0696

== ENCOUNTER 2024-02-23 09:57 | Outpatient (CLI) | payer OTHER, SELFPAY ==
[2024-02-23 10:11] LABS: Basophils Absolute Auto 0.05 K/mm3 (0.00-0.10); Basophils Percent Auto 0.7 % (0.0-1.0); Eosinophils Absolute Auto 0.27 K/mm3 (0.02-0.50); Eosinophils Percent Auto 3.6 % (1.0-6.0); Hematocrit 41.9 % (35.0-49.0); Immature Granulocyte Absolute 0.03 K/mm3 (0.00-0.00); Immature Granulocyte Percent A 0.4 % (0.0-0.0); Lymphocytes Absolute Auto 1.96 K/mm3 (1.10-4.50); Lymphocytes Percent Auto 26.3 % (18.0-42.0); Mean Corpuscular HGB Conc 33.4 g/dL (32-36); Mean Corpuscular Hemoglobin 30.8 pg (27.0-31.0); Mean Corpuscular Volume 92.1 fL (78.0-102.0); Mean Platelet Volume 9.2 fl (9.2-11.8); Monocytes Absolute Auto 0.54 K/mm3 (0.10-0.90); Monocytes Percent Auto 7.3 % (2.0-11.0); Neutrophils Absolute Auto 4.59 K/mm3 (1.70-7.20); Neutrophils Percent Auto 61.7 % (50.0-70.0); Platelet Count Result 331 K/mm3 (150-420); Red Blood Count 4.55 M/mm3 (4.20-5.40); Red Cell Distribution Width 12.7 % (11.6-14.4); White Blood Count 7.4 K/mm3 (4.8-10.8)
[2024-02-23 10:44] LABS: Alanine Aminotransferase 11 U/L (14-59); Albumin Level 3.9 g/dL (3.4-5.0); Alkaline Phosphatase 41 U/L (46-116); Anion Gap 10 mmol/L (4-12); Aspartate Amino Transferase 15 U/L (15-37); Bilirubin,Total 0.2 mg/dL (0.00-1.00); Blood Urea Nitrogen 16 mg/dL (7-18); CRP 0.7 mg/dL (0.0-0.9); Calcium 9.5 mg/dL (8.5-10.1); Carbon Dioxide 30 mmol/L (21-32); Chloride 101 mmol/L (98-108); Estimated Glomerular Filt Rate > 60; Glucose 134 mg/dL (70-99); Osmolality Calculated 295 mOsm/kg (285-295); Potassium 3.9 mmol/L (3.5-5.1); Sodium 141 mmol/L (136-145); Total Protein 6.6 g/dL (6.4-8.2)
== END 2024-02-23 09:58 | disposition home or self-care (01) ==
LOC: CHSLAB 09:59
PROVIDERS: PCP Internal Medicine; Visit Provider Internal Medicine
DX: R19.00 Intra-abdominal and pelvic swelling, mass and lump, unspecified site (principal)
CPT/HCPCS: 36415; 80053; 85025; 86140

== ENCOUNTER 2024-03-18 06:28 | Day surgery (SDC) | payer OTHER, SELFPAY ==
[2024-03-15 11:19] VITALS: BMI 27.1
--- NOTE | 2024-03-18 06:50 | WPDANESEPPF ---
Anes - Initial Pre Proc Eval Procedure: Operation Date: 03/18/24 08:45 Proposed Procedures p Excision 1cm Abdominal Skin Lesion - John Merida DO Date/Time: 03/18/24 06:50 Surgeon: John Merida DO Pre Op Diagnosis: 1cm Skin Lesion Patient Data Age: 48 Gender: F Height: 1.68 m Weight: 76.4 kg Allergies Allergy/AdvReac Type Severity Reaction Status Date / Time Sulfa (Sulfonamide Allergy Severe Unknown Verified 03/18/24 07:15 Antibiotics) aspirin AdvReac Intermediate Other Verified 03/18/24 07:15 Home Medications Medication Instructions Recorded Confirmed Type multivitamin (Daily Multi-Vitamin 1 tablet PO DAILY 07/23/19 03/18/24 History tablet) albuterol sulfate 90 mcg/actuation 1 inh inhalation Q4-6H PRN 07/29/20 03/18/24 History breath activated powder inhaler Shortness Of Breath montelukast 10 mg tablet 10 mg PO DAILY 09/01/21 03/18/24 History (Singulair) fexofenadine 180 mg tablet 180 mg PO DAILY 10/19/21 03/18/24 History escitalopram oxalate 20 mg tablet 20 mg PO DAILY 12/20/22 03/18/24 History albuterol sulfate 2.5 mg/3 mL 2.5 mg (3 mL) inhalation QID PRN 06/09/23 03/18/24 Rx (0.083 %) solution for nebulization shortness of breath or wheezing #360 mL cholecalciferol (vitamin D3) 25 25 mcg PO DAILY 06/09/23 03/18/24 History mcg (1,000 unit) capsule nebulizer accessories #1 ea 06/09/23 03/08/24 Rx famotidine 40 mg tablet 20 mg PO DAILY 10/18/23 03/18/24 History Trelegy Ellipta 200 mcg-62.5 See Rx Instructions .Route 12/04/23 03/18/24 Rx mcg-25 mcg powder for inhalation .COMPLEX #60 ea (imltwgudmfp-rgzilpisp-grsumeud) Airsupra 90 mcg-80 mcg/actuation 2 inh inhalation QID 30 days #10.7 12/13/23 03/18/24 Rx HFA aerosol inhaler grams (albuterol-budesonide) Fasenra Pen 30 mg/mL subcutaneous 30 mg subcut Q28D #1 mL 01/22/24 03/18/24 Rx auto-injector (benralizumab) epinephrine 0.3 mg/0.3 mL 0.3 mg (0.3 mL) IM ONCE #2 ea 01/22/24 03/18/24 Rx injection, auto-injector azelastine 137 mcg-fluticasone 50 1 spray intranasal BID #23 grams 02/08/24 03/18/24 Rx mcg/spray nasal spray (Dymista) Patient hx anesthesia problems: none Family hx anesthesia problems: none Results Review: All pre-operative results and documents have been reviewed as part of the pre-operative evaluation. [facility] Past Medical History Medical History (Updated 03/18/24 @ 06:50 by Laith Mathew DO) Asthma Colon cancer screening Depression with anxiety GERD (gastroesophageal reflux disease) HPV test positive VANDANA (obstructive sleep apnea) Surgical History Surgical History History of cholecystectomy History of tonsillectomy History of tubal ligation Family History Family History Mother Family history of pancreatic cancer Father Family history of malignant neoplasm of urinary bladder Family history of hypercholesterolemia Hypertension Alcoholism Depression Grandparent Family history of hypercholesterolemia Hypertension Cerebrovascular accident Carcinoma of colon, Onset Age: 56 Family history of genetic disorder Sibling Depression Grandparent Alcoholism Cancer Grandparent Alcoholism Hypertension Depression Heart disease Cerebrovascular accident Social History Social History (Updated 03/15/24 @ 09:25 by Theresa Nava [facility]) Smoking packs per day: 0.5 Smoking cigarettes per day: 10.0 Years smoked: 13 Smoking pack-years: 6.50 Smoking status: Current every day smoker Tobacco type: cigarettes Second hand tobacco smoke exposure: Yes Alcohol intake: current Drinks per week: 6 Substance use type: does not use Do You Feel Safe in your Home?: Yes Lack of Transportation: No Lack of Food: Never True Current Housing: I Have Housing Concerned About Future Housing: No Difficulty Paying Gas/Electric B
[2024-03-18 07:28] VITALS: BP 114/83; PULSE 90; RESP 16; TEMP 36.6; O2SAT 100; BMI 26.6
--- NOTE | 2024-03-18 07:34 | WPDHPUPDATE1 ---
History and Physical Update Update Date/Time: 03/18/24 07:34 History and Physical has been reviewed, including an updated exam of the patient. There are NO changes in the patient's condition. Risks, benefits, and alternatives have been discussed and questions answered. Patient agrees to proceed with procedure.
[2024-03-18] MEDS: LACTATED RINGERS 1,000 ML 30 ML IV CONT (07:47)
[2024-03-18] MEDS: LIDO 1%/EPINEPHRINE 1:100,000 50 ML VIAL 15 ML INFILTRATE (08:58)
[2024-03-18 09:17] VITALS: BP 105/63; PULSE 74; RESP 15; O2SAT 100
--- NOTE | 2024-03-18 09:22 | WPDANESPN ---
Anes - Prog Note Post-Op Date/Time: 03/18/24 09:22 Cardiovascular status: normal Respiratory status: normal Airway patency: baseline Mental status: baseline Post-Op hydration status: normal Vital Signs: Last Vital Signs Temp 36.6 C 03/18/24 07:28 Pulse 74 03/18/24 09:17 Resp 15 03/18/24 09:17 BP 105/63 03/18/24 09:17 Pulse Ox 100 03/18/24 09:17 O2 Del Method Room Air 03/18/24 09:17 Pain Score (VAS): 0 Post-procedural complaints: none Patient Feedback: Patient satisfied with anesthetic care. Other Findings: Patient vital signs back to baseline. Patient denies nausea and vomiting. Patient's pain under control. Patient OK for discharge.
--- NOTE | 2024-03-18 09:24 | P.OP_ITS ---
Procedure Note - Detailed Date of Procedure 03/18/24 Pre-op Diagnosis 1cm Abdominal Skin Lesion Post-op Diagnosis Same Procedure Performed Excision of 1 cm abdominal skin lesion Surgeon John Merida, DO Anesthesia MAC and Local ( 1% lidocaine with epinephrine) Indications this is a 48-year-old woman who presented with a skin lesion on her abdomen just superior to her umbilicus that was causing intermittent redness and pain. She would also have some occasional clear drainage. She had been placed on an tibiotics a couple times which would help with the flare ups, but the lesion kept coming back. Discussions were made with the patient about treatment options and decision was made to proceed with excision of 1 cm abdominal skin lesion. Findings The 1 cm abdominal skin lesion was completely excised. This appeared to be possibly a chronic granuloma or chronic abscess. It was completely excised with adequate margins and sent to the lab for pathology. No deep underlying abnormalities were noted. Description of Procedure Procedure as well as risks, benefits, and alternatives were discussed with the patient. Written consent was obtained and placed in chart prior to procedure. Patient was brought back to surgical suite. She was placed supine on operating table. Time-out was done to confirm patient and procedure. IV sedation was administered by the anesthesia department. Her abdomen was prepped and draped in sterile fashion using chlorhexidine prep. 1% lidocaine with epinephrine was infiltrated locally around the skin lesion. An elliptical incision was made around the skin lesion wide enough to completely excise it. The total width of the excision was 1 cm. The skin lesion was completely excised with the 15 blade scalpel and sent to the lab for pathology. Electrocautery was then used for hemostasis. The deep dermis was reapproximated using 3-0 Vicryl inverted interrupted sutures. Skin was then approximated using 4-0 Monocryl running subcuticular suture. Exofin glue was then applied on top. The patient was then awakened from anesthesia and transferred to recovery. Estimated Blood Loss 5 Pathology Yes ( 1 cm abdominal skin lesion) Complications No immediate complications Condition Stable Disposition Same day [facility] Billing Surgery - Charge Forward: Surgery Billing
[2024-03-18 09:27] VITALS: BP 105/56; PULSE 65; RESP 16; O2SAT 100
[2024-03-18 09:37] VITALS: BP 112/65; PULSE 67; RESP 16; O2SAT 100
== END 2024-03-18 10:02 | disposition home or self-care (01) ==
PROVIDERS: PCP Internal Medicine; Visit Provider Surgery
PROC: (CPT 11401; principal; 2024-03-18 08:45)
DX: D48.5 Neoplasm of uncertain behavior of skin (principal)
CPT/HCPCS: 11401; 12031

== ENCOUNTER 2024-03-19 07:41 | Outpatient (NON) | payer OTHER, SELFPAY | END 2024-03-19 07:42 | disposition home or self-care (01) | PROVIDERS: PCP Internal Medicine; Visit Provider Surgery | DX: L72.0 Epidermal cyst (principal) | CPT/HCPCS: 88305 ==

== ENCOUNTER 2024-04-10 10:26 | Outpatient (CLI) | payer OTHER, SELFPAY ==
--- NOTE | ~2024-04-10 | XR_ITS ---
Clinical Indication: Shortness of breath PA and lateral views of the chest: Comparison: 07/08/2023 Findings: The lungs are clear, without evidence of focal consolidation or pleural effusion. Cardiome diastinal silhouette is within normal limits. Bones and soft tissues are unremarkable. Impression: Normal chest. Reviewed, dictated and finalized at location . Impression: Normal chest.
[2024-04-10 10:44] LABS: Basophils Absolute Auto 0.01 K/mm3 (0.00-0.10); Basophils Percent Auto 0.1 % (0.0-1.0); Eosinophils Absolute Auto 0.01 K/mm3 (0.02-0.50); Eosinophils Percent Auto 0.1 % (1.0-6.0); Hematocrit 42.3 % (35.0-49.0); Immature Granulocyte Absolute 0.06 K/mm3 (0.00-0.00); Immature Granulocyte Percent A 0.4 % (0.0-0.0); Lymphocytes Absolute Auto 1.76 K/mm3 (1.10-4.50); Lymphocytes Percent Auto 12.5 % (18.0-42.0); Mean Corpuscular HGB Conc 33.1 g/dL (32-36); Mean Corpuscular Hemoglobin 30.8 pg (27.0-31.0); Mean Corpuscular Volume 93.2 fL (78.0-102.0); Mean Platelet Volume 9.2 fl (9.2-11.8); Monocytes Absolute Auto 0.86 K/mm3 (0.10-0.90); Monocytes Percent Auto 6.1 % (2.0-11.0); Neutrophils Absolute Auto 11.34 K/mm3 (1.70-7.20); Neutrophils Percent Auto 80.8 % (50.0-70.0); Platelet Count Result 361 K/mm3 (150-420); Red Blood Count 4.54 M/mm3 (4.20-5.40); Red Cell Distribution Width 12.8 % (11.6-14.4)
[2024-04-10 11:21] LABS: Anion Gap 9 mmol/L (4-12); Blood Urea Nitrogen 18 mg/dL (7-18); Calcium 9.7 mg/dL (8.5-10.1); Carbon Dioxide 29 mmol/L (21-32); Chloride 103 mmol/L (98-108); Estimated Glomerular Filt Rate > 60; Glucose 98 mg/dL (70-99); Osmolality Calculated 293 mOsm/kg (285-295); Potassium 3.5 mmol/L (3.5-5.1); Sodium 141 mmol/L (136-145)
== END 2024-04-10 10:27 | disposition home or self-care (01) ==
LOC: CHSLAB 10:28
PROVIDERS: PCP Internal Medicine; Visit Provider Nurse Practitioner Family
DX: R06.02 Shortness of breath (principal); R05.9 Cough, unspecified
CPT/HCPCS: 36415; 71046; 80048; 85025

== ENCOUNTER 2024-05-14 16:10 | Outpatient (CLI) | payer OTHER, SELFPAY ==
[2024-05-14 16:29] LABS: Hematocrit 39.5 % (35.0-49.0); Mean Corpuscular HGB Conc 32.9 g/dL (32-36); Mean Corpuscular Hemoglobin 30.7 pg (27.0-31.0); Mean Corpuscular Volume 93.4 fL (78.0-102.0); Mean Platelet Volume 9.1 fl (9.2-11.8); Platelet Count Result 307 K/mm3 (150-420); Red Blood Count 4.23 M/mm3 (4.20-5.40); Red Cell Distribution Width 13.2 % (11.6-14.4); White Blood Count 5.8 K/mm3 (4.8-10.8)
[2024-05-14 16:47] LABS: Alanine Aminotransferase 23 U/L (14-59); Albumin Level 3.4 g/dL (3.4-5.0); Alkaline Phosphatase 38 U/L (46-116); Anion Gap 10 mmol/L (4-12); Aspartate Amino Transferase 14 U/L (15-37); Bilirubin,Total 0.3 mg/dL (0.00-1.00); Blood Urea Nitrogen 12 mg/dL (7-18); CRP 0.9 mg/dL (0.0-0.9); Calcium 9.1 mg/dL (8.5-10.1); Carbon Dioxide 29 mmol/L (21-32); Chloride 106 mmol/L (98-108); Estimated Glomerular Filt Rate > 60; Glucose 83 mg/dL (70-99); Osmolality Calculated 298 mOsm/kg (285-295); Potassium 3.7 mmol/L (3.5-5.1); Sodium 145 mmol/L (136-145); Total Protein 6.1 g/dL (6.4-8.2)
[2024-05-15 09:13] LABS: Immunoglobulin A 94 mg/dL (47-310); Immunoglobulin G 610 mg/dL (600-1640); Immunoglobulin M 107 mg/dL (50-300)
== END 2024-05-14 16:11 | disposition home or self-care (01) ==
PROVIDERS: PCP Internal Medicine; Visit Provider Internal Medicine
DX: J06.9 Acute upper respiratory infection, unspecified (principal)
CPT/HCPCS: 36415; 80053; 82784; 85027; 86140

== ENCOUNTER 2024-08-07 14:33 | Outpatient (CLI) | payer OTHER, SELFPAY ==
[2024-08-07 15:17] LABS: Strep Group A RT-PCR NOT DETECTED (Negative)
--- OUTSIDE RECORDS SUMMARY | 2024-08-07 15:18 | XMS_ITS | Patient Health Summary ---
Author Organization [facility] Address [address] [place] [address] Care Team Providers Care Service Girl Name Role Phone Gildardo Dolan MD Primary Care Provider [phone] Gildardo Dolan MD Unavailable [phone] Note from [facility],non-owned Affiliates and Associated Physician Practices is amultiple site organization consisting of ambulatory clinics and hospital sitesin [place], [place], [place] and [place]. This disclosure is being madepursuant to the Care Everywhere program and may not contain all information available regarding this patient. Last updated 18.[facility] Allergies * Aspirin(GI Discomfort) Medications * Be aware that medications may not be up to date on this document. Alwaysverify current medications with the patient. * albuterol HFA (PROVENTIL;VENTOLIN;PROAIR) 108 (90 Base) MCG/ACT inhaler (Started 04/10/2020) Inhale 10 g by mouth as needed * montelukast (SINGULAIR) 10 MG tablet(Started 04/10/2020) Take 10 tablets by mouth 2 times daily * fluticasone propionate (FLONASE) 50 MCG/ACT nasal spray(Started 04/10/2020) [place] 180 sprays into each nostril 1 Before Breakfast, 2 Before Dinner Active Problems No known active problems Social History Tobacco Use Types Packs/Day Years Used Date Smoking Tobacco: Every Day Cigarettes Smokeless Tobacco: Never Alcohol Use Standard Drinks/Week Comments Yes 0 (1 standard drink = 0.6 oz pur e alcohol) 6 Sex and Gender Information Value Date Recorded Sex Assigned at Not on file Gender Identity Not on file Sexual Orientation Not on file Care Teams Service Girl Relationship Specialty Start Date End Date Gildardo Dolan MD PCP - General 02/26/20 Gildardo Dolan MD 02/26/20
--- OUTSIDE RECORDS SUMMARY | 2024-08-07 15:18 | XMS_ITS | Referral Summary ---
Author Organization [facility] Address [address] [place] [address] Care Team Providers Care Bottle Cleaner Name Role Phone Gildardo Dolan MD Primary Care Provider [phone] Gildardo Dolan MD Unavailable [phone] Source Comments [facility],non-owned Affiliates and Associated Physician Practices is amultiple site organization consisting of ambulatory clinics and hospital sitesin [place], [place], [place] and [place]. This disclosure is being madepursuant to the Care Everywhere program and may not contain all information available regarding this patient. Last updated 18.[facility] Allergies Active Allergy Reactions Criticality Noted Date Comments Aspirin GI Discomfort 01/28/2020 Medications * Be aware that medications may not be up to date on this document. Alwaysverify current medications with the patient. Medication Sig Dispensed Refills Start Date End Date Status albuterol HFA (PROVENTIL;VENTOLIN;MA OAIR) 108 (90 Base) MCG/ACT inhaler Inhale 10 g by mouth as needed 04/10/2020 Active montelukast (SINGULAIR) 10 MG tablet Take 10 tablets by mouth 2 times daily 04/10/2020 Active fluticasone propionate (FLONASE) 50 MCG/ACT nasal spray [place] 180 sprays into each nostril 1 Before Breakfast, 2 Before Dinner 04/10/2020 Active Active Problems No known active problems Social History Tobacco Use Types Packs/Day Years Used Date Smoking Tobacco: Every Day Cigarettes Smokeless Tobacco: Never Alcohol Use Standard Drinks/Week Comments Yes 0 (1 standard drink = 0.6 oz pur e alcohol) 6 Sex and Gender Information Value Date Recorded Sex Assigned at Not on file Gender Identity Not on file Sexual Orientation Not on file Plan of Treatment Not on file Care Teams Bottle Cleaner Relationship Specialty Start Date End Date Gildardo Dolan MD PCP - General 02/26/20 Gildardo Dolan MD 02/26/20
--- OUTSIDE RECORDS SUMMARY | 2024-08-07 15:18 | XMS_ITS | Clinical Summary ---
Author Organization [facility] Address [address] [place] [address] Care Team Providers Care Coffee Shop Aide Name Role Phone Gildardo Dolan MD Primary Care Provider [phone] Gildardo Dolan MD Unavailable [phone] Source Comments [facility],non-owned Affiliates and Associated Physician Practices is amultiple site organization consisting of ambulatory clinics and hospital sitesin [place], [place], [place] and [place]. This disclosure is being madepursuant to the Care Everywhere program and may not contain all information available regarding this patient. Last updated 18.[facility] Allergies Active Allergy Reactions Criticality Noted Date Comments Aspirin GI Discomfort 01/28/2020 Medications * Be aware that medications may not be up to date on this document. Alwaysverify current medications with the patient. Medication Sig Dispensed Refills Start Date End Date Status albuterol HFA (PROVENTIL;VENTOLIN;NE OAIR) 108 (90 Base) MCG/ACT inhaler Inhale 10 g by mouth as needed 04/10/2020 Active montelukast (SINGULAIR) 10 MG tablet Take 10 tablets by mouth 2 times daily 04/10/2020 Active fluticasone propionate (FLONASE) 50 MCG/ACT nasal spray [place] 180 sprays into each nostril 1 Before Breakfast, 2 Before Dinner 04/10/2020 Active Active Problems No known active problems Family History Medical History Relation Name Comments None Known Brother None Known Father None Known Maternal Aunt None Known Maternal Grandfather None Known Maternal Grandmother None Known Maternal Uncle None Known Mother None Known Other None Known Paternal Aunt None Known Paternal Grandfather None Known Paternal Grandmother None Known Paternal Uncle None Known Sister Asthma Neg Hx CVA Neg Hx Cancer - Breast Neg Hx Cancer - Other Neg Hx Cancer - Skin, Melanoma Neg Hx Cancer - Skin, Non Melanoma Neg Hx Eczema Neg Hx Hemophilia Neg Hx Psoriasis Neg Hx Relation Name Status Comments Brother Father Maternal Aunt Maternal Grandfather Maternal Grandmother Maternal Uncle Mother Other Paternal Aunt Paternal Grandfather Paternal Grandmother Paternal Uncle Sister Social History Tobacco Use Types Packs/Day Years Used Date Smoking Tobacco: Every Day Cigarettes Smokeless Tobacco: Never Alcohol Use Standard Drinks/Week Comments Yes 0 (1 standard drink = 0.6 oz pur e alcohol) 6 Sex and Gender Information Value Date Recorded Sex Assigned at Not on file Gender Identity Not on file Sexual Orientation Not on file Plan of Treatment Health Maintenance Due Date Last Done Comments COLOGUARD (AGES 45-75) - COL ON CA SCREENING 1973 COLON MONITORING 1973 COLONOSCOPY - COLON CA SCREENING 1973 CT COLONOGRAPHY - COLON CA SCREENING 1973 Colorectal Cancer Screening 1973 FIT - COLON CA SCREENING 1973 FLEX SIG - COLON CA SCREENING 1973 LIPID TESTING 1973 MAMMOGRAM 1973 PAP SMEAR 1973 HIV SCREENING 1988 HEPATITIS C SCREENING 11/29/1991 DTAP/TDAP/TD VACCINES (1 - Tdap) 1992 HEPATITIS B VACCINE (1 of 3 - 19+ 3-dose series) 1992 PNEUMOCOCCAL VACCINE 50+ (1 of 2 - PCV) 1992 PNEUMOCOCCAL VACCINE (1 of 2 - PCV) 1992 ZOSTER VACCINE (1 of 2) 12/04/2023 COVID-19 VACCINE (1 - 2023-2 5 season) 2024 INFLUENZA VACCINE (#1) 2024 DEPRESSION SCREENING 07/03/2024 HIB VACCINE Aged Out No longer eligi ble based on patient's age to complete this topic HPV VACCINE Aged Out No longer eligi ble based on patient's age to complete this topic MENINGOCOCCAL (Group B) VACCINE Aged Out No longer eligible based on patient's age to complete this topic MENINGOCOCCAL VACCINE Aged Out No ind[place] hector eligible based on patient's age to complete this topic Care Teams Coffee Shop Aide Relationship Specialty Start Date End Date Gildardo Dolan MD PCP - General 02/26/20 Gildardo Dolan MD 02/26/20
--- OUTSIDE RECORDS SUMMARY | 2024-08-07 15:18 | XMS_ITS | Clinical Summary ---
Author Organization [facility] [place] [address] Address [address] [place] [phone] Care Team Providers Care Security Tester Name Role Phone Eric Mar MD Unavailable [phone] Eric Mar MD Primary Care Provider [phone] Allergies Active Allergy Reactions Criticality Noted Date Comments Aspirin Stomach upset Low 01/28/2020 Medications albuterol 2.5 mg /3 mL (0.083 %) nebulizer solution 3 Active albuterol HFA (PROVENTIL HFA,VENTOLIN HFA,PROAIR HFA) 90 mcg/actuation inhaler Inhale 10 g as needed 0 Active azelastine-flut icasone 137-50 mcg/spray spray,non-aeros ol 3 Active buPROPion XL (WELLBUTRIN XL) 150 mg 24 hr tablet 4 Active escitalopram (LEXAPRO) 20 mg tablet 4 Active Allergy Relief, fexofenadine, 180 mg tablet 4 Active fluticasone propionate (FLONASE) 50 mcg/actuation nasal spray Administer 180 sprays into affected nostril(s) 0 Active Trelegy Ellipta 200-62.5-25 mcg inhaler 4 Active montelukast (SINGULAIR) 10 mg tablet Take 10 tablets (100 mg total) by mouth 2 (two) times a day 0 Active cefdinir (OMNICEF) 300 mg capsule 1 capsule (300 mg total) 4 Active Fasenra Pen 30 mg/mL auto-injector 4 Active Active Problems Problem Noted Date Diagnosed Date Mass of left breast 11/24/2023 Encounters Date Type Department Care Team Description 05/27/2024 8:45 AM HAND BOBBIN CLEANER Office Visit [facility] [address] [facility] [address] [place] [address] Yoana Amaya NP Mass of left breast, unspecified quadrant (Primary Dx); Abnormal finding on breast imaging 05/27/2024 8:37 AM HAND BOBBIN CLEANER - 05/27/2024 11:59 PM HAND BOBBIN CLEANER Hospital Encounter [facility] [place] - Breast Imaging [address] [facility] [address] [place] [address] Mass of left breast, unspecified quadrant Discharge Disposition: Discharge to home or self care from Last 3 Months Immunizations Name Administration Dates Next Due Pneumococcal Conjugate Pcv20 06/17/2023 Td, adsorbed 02/24/2000 Tdap 05/14/2014 Surgical History Surgery Date Site/Laterality Comments TONSILLECTOMY age 13 TUBAL LIGATION age 33 Medical History Medical History Date Comments Migraines Depression Peptic ulcer Arthritis IBS (irritable bowel syndrome) Family History Medical History Relation Name Comments Bladder Cancer Father Colon cancer Maternal Grandmother Pancreatic cancer Mother Pancreatic cancer Mother's Brother Relation Name Status Comments Father Maternal Grandmother Mother Mother's Brother Social History Tobacco Use Types Packs/Day Years Used Date Smoking Tobacco: Every Day Cigarettes Tobacco Cessation:Ready to Q uit: Not Asked; Counseling Given: Not Answered AUDIT-C Answer Date Recorded Q1: How often do you have a drink containing alc ohol? Monthly or less 11/23/2023 Q2: How many drinks containi ng alcohol do you have on a typical day when you are drinking? 1 or 2 11/23/2023 Q3: How often do you have si x or more drinks on one occasion? Less than monthly 11/23/2023 Comments Unknown Sex and Gender Information Value Date Recorded Sex Assigned at Not on file Legal Sex Female 11:01 AM HAND BOBBIN CLEANER Gender Identity Female 11/21/2023 5:43 PM CDT Sexual Orientation Straight 11/21/2023 5: 43 PM CDT Obstetrics History Last Filed Vital Signs Vital Sign Reading Time Taken Comments Blood Pressure 100/80 08/03/2023 11:36 AM HAND BOBBIN CLEANER Pulse 83 08/03/2023 11:36 AM HAND BOBBIN CLEANER Temperature 37.1 C (98.8 F) 08/03/2023 11:36 AM HAND BOBBIN CLEANER Respiratory Rate 24 08/03/2023 11:36 AM HAND BOBBIN CLEANER Oxygen Saturation 99% 08/03/2023 11:36 AM HAND BOBBIN CLEANER Inhaled Oxygen Concentration - - Weight 72.6 kg (160 lb 0.9 oz) 05/27/2024 8:49 A M HAND BOBBIN CLEANER Height 167.6 cm (5' 5.98 ) 05/27/2024 8:49 AM CS T Body Mass Index 25.85 05/27/2024 8:49 AM HAND BOBBIN CLEANER Plan of Treatment Health Maintenance Due Date Last Done Comments Breast Cancer Screening-Mammogram 1973 Cervical Cancer Screening 1973 Colon Cancer Screening-Colonoscopy 1973 Depression Screening 1973 Hepatitis C Screening 1973 Hepatitis B Screening 12/04/1991 Regular Well Visit/Exam 18-64 12/04/1991 Zoster Vaccine (1 of 2) 12/04/2023 Covid-19 Vaccine ( - 2023-2 5 season) 2024 06/17/2023, 06/03/2022, 06/15/2021, Additional history exists Influenza Vaccine (#1) 2024 DTaP/Tdap/Td Vaccine (2 - Td or Tdap) 05/14/2024 05/14/2014, 02/24/2000 Pneumococcal vaccine <65 Completed 06/17/2023 Procedures Procedure Name Priority Date/Time Associated Diagnosis Comments US BREAST LEFT LIMITED Schedule Routine, Read Routine (OP Routine) 05/27/2024 9:28 AM HAND BOBBIN CLEANER Mass of left breast, unspecified quadrant from Last 3 Months Results * US Breast Left Limited (05/27/2024 9:28 AM HAND BOBBIN CLEANER) Anatomical Region Laterality Modality Breast Left Ultrasound 05/27/2024 9:33 AM HAND BOBBIN CLEANER Impressions 05/27/2024 11:31 AM HAND BOBBIN CLEANER Likely cluster of microcysts in the left breast (8:30, 6 cm from the nipple) appears unchanged dating back to 09/29/2023 and is probably benign. Recommend six-month follow-up ultrasound. Patient is due for annual mammography at that time. OVERALL FINAL ASSESSMENT: BI-RADS Category 3: Probably Benign. RECOMMENDATION: Recommend follow-up diagnostic breast imaging in 6 months with right breast ultrasound and bilateral mammogram. Dictated by: Dandre Santillan MD The radiology attending physician has personally reviewed this study, and had reviewed and/or edited this written report and agrees with it. Electronically signed by: Jackelin Fraire M.D. Narrative 05/27/2024 11:31 AM HAND BOBBIN CLEANER EXAMINATION: LEFT BREAST ULTRASOUND HISTORY: 47-year-old woman undergoing six-month follow-up for likely complicated cyst in the left breast. COMPARISON: Multiple prior mammographic studies dating back to 09/14/2021 TECHNIQUE: Directed ultrasound evaluation of the LEFT breast was performed. ULTRASOUND FINDINGS: Left breast, 8:30, 6 cm from the nipple: 0.7 x 0.5 x 0.5 cm irregular, hypoechoic, circumscribed cystic mass with internal septations appears unchanged over several prior studies dating back to 09/29/2023, likely representing a cluster of microcysts. Procedure Note Jackelin Fraire MD - 05/27/2024 EXAMINATION: LEFT BREAST ULTRASOUND HISTORY: 47-year-old woman undergoing six-month follow-up for likely complicated cyst in the left breast. COMPARISON: Multiple prior mammographic studies dating back to 09/14/2021 TECHNIQUE: Directed ultrasound evaluation of the LEFT breast was performed. ULTRASOUND FINDINGS: Left breast, 8:30, 6 cm from the nipple: 0.7 x 0.5 x 0.5 cm irregular, hypoechoic, circumscribed cystic mass with internal septations appears unchanged over several prior studies dating back to 09/29/2023, likely representing a cluster of microcysts. IMPRESSION: Likely cluster of microcysts in the left breast (8:30, 6 cm from the nipple) appears unchanged dating back to 09/29/2023 and is probably benign. Recommend six-month follow-up ultrasound. Patient is due for annual mammography at that time. OVERALL FINAL ASSESSMENT: BI-RADS Category 3: Probably Benign. RECOMMENDATION: Recommend follow-up diagnostic breast imaging in 6 months with right breast ultrasound and bilateral mammogram. Dictated by: Dandre Santillan MD The radiology attending physician has personally reviewed this study, and had reviewed and/or edited this written report and agrees with it. Electronically signed by: Jackelin Fraire M.D. Minna Perdomo Gina PLAYGROUND SUPERVISOR IMG MAMMO PROCEDURES Final Result from Last 3 Months Insurance [facility] Care Teams Security Tester Relationship Specialty Start Date End Date Eric Mar MD PCP - General Internal Medicine 11/23/23 Eric Mar MD Referring Physician Internal Medicine 10/02/23
--- OUTSIDE RECORDS SUMMARY | 2024-08-07 15:18 | XMS_ITS | Referral Summary ---
Author Organization [facility] [place] [address] Address [address] [place] [phone] Care Team Providers Care Senior Systems Architect Name Role Phone Eric Mar MD Unavailable [phone] Eric Mar MD Primary Care Provider [phone] Encounters Date Type Department Care Team Description 05/27/2024 8:37 AM ADVANCED REGISTERED NURSE - 05/27/2024 11:59 PM ADVANCED REGISTERED NURSE Hospital Encounter [facility] - Breast Imaging [address] [facility] [address] [place] [address] Mass of left breast, unspecified quadrant Discharge Disposition: Discharge to home or self care 05/27/2024 8:45 AM ADVANCED REGISTERED NURSE Office Visit [facility] [facility] [address] [place] [id number] Yoana Amaya NP Mass of left breast, unspecified quadrant (Primary Dx); Abnormal finding on breast imaging from Last 3 Months Allergies Active Allergy Reactions Criticality Noted Date [...] Diagnosed Date Mass of left breast 11/24/2023 Immunizations Name Administration Dates Next Due Pneumococcal Conjugate Pcv20 06/17/2023 Td, adsorbed 02/24/2000 Tdap 05/14/2014 Social History Tobacco Use Types Packs/Day Years [...] on file Legal Sex Female 11:01 AM ADVANCED REGISTERED NURSE Gender Identity Female 11/21/2023 5:43 PM CDT Sexual Orientation Straight 11/21/2023 5: 43 PM CDT Last Filed Vital Signs Vital Sign Reading Time Taken Comments Blood Pressure 100/80 08/03/2023 11:36 AM ADVANCED REGISTERED NURSE Pulse 83 08/03/2023 11:36 AM ADVANCED REGISTERED NURSE Temperature 37.1 C (98.8 F) 08/03/2023 11:36 AM ADVANCED REGISTERED NURSE Respiratory Rate 24 08/03/2023 11:36 AM ADVANCED REGISTERED NURSE Oxygen Saturation 99% 08/03/2023 11:36 AM ADVANCED REGISTERED NURSE Inhaled Oxygen Concentration - - Weight 72.6 kg (160 lb 0.9 oz) 05/27/2024 8:49 A M ADVANCED REGISTERED NURSE Height 167.6 cm (5' 5.98 ) 05/27/2024 8:49 AM CS T Body Mass Index 25.85 05/27/2024 8:49 AM ADVANCED REGISTERED NURSE Plan of Treatment Not on file Procedures Procedure Name Priority Date/Time Associated Diagnosis Comments US BREAST LEFT LIMITED Schedule Routine, Read Routine (OP Routine) 05/27/2024 9:28 AM ADVANCED REGISTERED NURSE Mass of left breast, unspecified quadrant from Last 3 Months Results * US Breast Left Limited (05/27/2024 9:28 AM ADVANCED REGISTERED NURSE) Anatomical Region Laterality Modality Breast Left Ultrasound 05/27/2024 9:33 AM ADVANCED REGISTERED NURSE Impressions 05/27/2024 11:31 AM ADVANCED REGISTERED NURSE Likely cluster of microcysts in the left [...] Jackelin Fraire M.D. Narrative 05/27/2024 11:31 AM ADVANCED REGISTERED NURSE EXAMINATION: LEFT BREAST ULTRASOUND HISTORY: 47-year-old woman [...] Electronically signed by: Jackelin Fraire M.D. Minna Fuentes NP IMG MAMMO PROCEDURES Final Result from Last 3 Months Insurance [facility] Care Teams Senior Systems Architect Relationship Specialty Start Date End Date Eric Mar MD PCP - General Internal Medicine 11/23/23 Eric Mar MD Referring Physician Internal Medicine 10/02/23
--- OUTSIDE RECORDS SUMMARY | 2024-08-07 15:18 | XMS_ITS | Encounter Summary ---
Author Organization [facility] Healthcare Address [address] [place] [address] Care Team Providers Care Retail Cashier Associate Name Role Phone Unavailable Primary Care Provider Unavailabl e Reason for Visit * Diagnostic Imaging (Routine) - Pending Review Specialty Diagnoses / Procedures Referred By Contac t Referred To Contact Procedures Breast Imaging Screening Outside Reference Transcribed Order, Provider Referral ID Status Reason Start Date Expiration Date V isits Requested Visits Authorized [id number] Pending Review 10/12/2023 11/10/2024 1 1 Encounter Details Date Type Department Care Team (Late st Contact Info) Description 08/31/2020 Hospital Encounter [facility] [address] [place] [address] Social History Tobacco Use Types Packs/Day Years [...] on file Legal Sex Female 11:01 AM WEED SCIENCE RESEARCH TECHNICIAN Gender Identity Female 11/21/2023 5:43 PM CDT Sexual Orientation Straight 11/21/2023 5: 43 PM CDT documented as of this encounter Plan of Treatment Not on file documented as of this encounter Procedures Procedure Name Priority Date/Time Associated Diagnosis Comments BREAST IMAGING MG SCREENING OUTSIDE REFERENCE Routine 08/31/2020 12:00 AM WEED SCIENCE RESEARCH TECHNICIAN documented in this encounter Results * Breast Imaging Screening Outside Reference (08/31/2020 12:00 AM WEED SCIENCE RESEARCH TECHNICIAN) Impressions KARIMAMMOJOSÉ - 10/12/2023 11:14 AM CDT These images are for Reference purposes only and have not been reviewed by [facility] Radiology. There will be no report generated by a [facility] Radiologist. Narrative RAD_MAMMO_ABENA - 10/12/2023 11:14 AM CDT EXAMINATION: Images For Reference Purposes Only us Provider Transcribed Order IMG MAMMO PROCEDURES Final Result ARIAN_MAMMO_ABENA documented in this encounter Visit Diagnoses Not on filedocumented in this encounter Additional Health Concerns Infection Onset Date Last Indicated Resolved Time COVID: Suspected 08/03/2023 08/03/2023 08/03/2023 11:52 AM WEED SCIENCE RESEARCH TECHNICIAN COVID: Suspected 08/03/2023 08/03/2023 08/03/2023 10:31 PM WEED SCIENCE RESEARCH TECHNICIAN documented as of this encounter
--- OUTSIDE RECORDS SUMMARY | 2024-08-07 15:18 | XMS_ITS | Encounter Summary ---
Author Organization [facility] Healthcare Address [address] [place] [address] Care Team Providers Care Integrated Logistics Operations Manager Name Role Phone Unavailable Primary Care Provider Unavailabl e Reason for Visit * Diagnostic Imaging (Routine) - Pending Review Specialty Diagnoses / Procedures Referred By Contac t Referred To Contact Procedures Breast Imaging Screening Outside Reference Transcribed Order, Provider Referral ID Status Reason Start Date Expiration Date V isits Requested Visits Authorized [id number] Pending Review 10/13/2023 11/11/2024 1 1 Encounter Details Date Type Department Care Team (Late st Contact Info) Description 08/28/2019 Hospital Encounter [facility] [address] [place] [id number] Social History Tobacco Use Types Packs/Day Years [...] on file Legal Sex Female 11:01 AM SLITTER AND REWINDER Gender Identity Female 11/21/2023 5:43 PM CDT Sexual Orientation Straight 11/21/2023 5: 43 PM CDT documented as of this encounter Plan of Treatment Not on file documented as of this encounter Procedures Procedure Name Priority Date/Time Associated Diagnosis Comments BREAST IMAGING MG SCREENING OUTSIDE REFERENCE Routine 08/28/2019 12:00 AM SLITTER AND REWINDER documented in this encounter Results * Breast Imaging Screening Outside Reference (08/28/2019 12:00 AM SLITTER AND REWINDER) Impressions RAD_MAMMO_ABENA - 10/13/2023 12:49 PM CDT These images are for Reference purposes only and have not been reviewed by [facility] Radiology. There will be no report generated by a [facility] Radiologist. Narrative RAD_MAMMO_[facility] - 10/13/2023 12:49 PM CDT EXAMINATION: Images For Reference Purposes Only us Provider Transcribed Order IMG MAMMO PROCEDURES Final Result ARIAN_MAMMO_ABENA documented in this encounter Visit Diagnoses Not on filedocumented in this encounter Additional Health Concerns Infection Onset Date Last Indicated Resolved Time COVID: Suspected 08/03/2023 08/03/2023 08/03/2023 11:52 AM SLITTER AND REWINDER COVID: Suspected 08/03/2023 08/03/2023 08/03/2023 10:31 PM SLITTER AND REWINDER documented as of this encounter
[2024-08-07 15:29] LABS: SARS-CoV-2 RNA PCR Positive (Negative)
[2024-08-07 15:30] LABS: Influenza A QL RT-PCR Negative (Negative); Influenza B QL RT-PCR Negative (Negative); RSV RNA, RT-PCR Negative (Negative)
== END 2024-08-07 14:34 | disposition home or self-care (01) ==
LOC: CHSLAB 14:35
PROVIDERS: PCP Internal Medicine; Visit Provider Internal Medicine
DX: U07.1 COVID-19 (principal); J02.9 Acute pharyngitis, unspecified; R05.9 Cough, unspecified
CPT/HCPCS: 87637; 87651

== ENCOUNTER 2024-09-26 19:09 | Outpatient (CLI) | payer OTHER, SELFPAY ==
--- OUTSIDE RECORDS SUMMARY | 2024-09-26 19:13 | XMS_ITS | Encounter Summary ---
Author Organization [facility] Healthcare Address [address] [place] [address] Care Team Providers Care Director Of Counseling Name Role Phone Unavailable Primary Care Provider Unavailabl e Reason for Visit * Diagnostic Imaging (Routine) - Pending Review Specialty Diagnoses / Procedures Referred By Contac t Referred To Contact Procedures Breast Imaging Screening Outside Reference Transcribed Order, Provider Referral ID Status Reason Start Date Expiration Date V isits Requested Visits Authorized [id number] Pending Review 10/12/2023 11/10/2024 1 1 Encounter Details Date Type Department Care Team (Late st Contact Info) Description 08/31/2020 Hospital Encounter [facility] [address] [place] [address] Social History Tobacco Use Types Packs/Day Years [...] on file Legal Sex Female 11:01 AM SUPPORT SERVICES REP Gender Identity Female 11/21/2023 5:43 PM CDT Sexual Orientation Straight 11/21/2023 5: 43 PM CDT documented as of this encounter Functional Status * Audit-C Score Answer Date of Assessment Author 2 [...] SCREENING OUTSIDE REFERENCE Routine 08/31/2020 12:00 AM SUPPORT SERVICES REP documented in this encounter Results * Breast Imaging Screening Outside Reference (08/31/2020 12:00 AM SUPPORT SERVICES REP) Impressions RAD_MAMMO_[facility] - 10/12/2023 11:14 AM CDT These images are for Reference purposes only and have not been reviewed by [facility] Radiology. There will be no report generated by a [facility] Radiologist. Narrative RAD_MAMMO_[facility] - 10/12/2023 11:14 AM CDT EXAMINATION: Images For Reference Purposes Only us Provider Transcribed Order IMG MAMMO PROCEDURES Final Result RAD_MAMMO_[facility] documented in this encounter Visit Diagnoses Not on filedocumented in this encounter Additional Health Concerns Infection Onset Date Last Indicated Resolved Time COVID: Suspected 08/03/2023 08/03/2023 08/03/2023 11:52 AM SUPPORT SERVICES REP COVID: Suspected 08/03/2023 08/03/2023 08/03/2023 10:31 PM SUPPORT SERVICES REP documented as of this encounter
--- OUTSIDE RECORDS SUMMARY | 2024-09-26 19:13 | XMS_ITS | Encounter Summary ---
Author Organization [facility] Healthcare Address [address] [place] [address] Care Team Providers Care Shellfish Checker Name Role Phone Unavailable Primary Care Provider Unavailabl e Reason for Visit * Diagnostic Imaging (Routine) - Pending Review Specialty Diagnoses / Procedures Referred By Contac t Referred To Contact Procedures Breast Imaging Screening Outside Reference Transcribed Order, Provider Referral ID Status Reason Start Date Expiration Date V isits Requested Visits Authorized [id number] Pending Review 10/13/2023 11/11/2024 1 1 Encounter Details Date Type Department Care Team (Late st Contact Info) Description 08/28/2019 Hospital Encounter [facility] [address] [place] [id number] Social History Tobacco Use Types Packs/Day Years [...] on file Legal Sex Female 11:01 AM TOW MOTOR OPERATOR Gender Identity Female 11/21/2023 5:43 PM CDT [...] SCREENING OUTSIDE REFERENCE Routine 08/28/2019 12:00 AM TOW MOTOR OPERATOR documented in this encounter Results * Breast Imaging Screening Outside Reference (08/28/2019 12:00 AM TOW MOTOR OPERATOR) Impressions RAD_MAMMO_[facility] - 10/13/2023 12:49 PM CDT These images are for Reference purposes only and have not been reviewed by [facility] Radiology. There will be no report generated by a [facility] Radiologist. Narrative RAD_MAMMO_[facility] - 10/13/2023 12:49 PM CDT EXAMINATION: Images For Reference Purposes Only us Provider Transcribed Order IMG MAMMO PROCEDURES Final Result RAD_MAMMO[facility] documented in this encounter Visit Diagnoses Not on filedocumented in this encounter Additional Health Concerns Infection Onset Date Last Indicated Resolved Time COVID: Suspected 08/03/2023 08/03/2023 08/03/2023 11:52 AM TOW MOTOR OPERATOR COVID: Suspected 08/03/2023 08/03/2023 08/03/2023 10:31 PM TOW MOTOR OPERATOR documented as of this encounter
--- OUTSIDE RECORDS SUMMARY | 2024-09-26 19:13 | XMS_ITS | Clinical Summary ---
Author Organization [facility] Address [address] [place] [address] Care Team Providers Care Foundation Drill Operator Helper Name Role Phone Gildardo Dolan MD Primary Care Provider [phone] Gildardo Dolan MD Unavailable [phone] Source Comments [facility],non-owned Affiliates and Associated Physician Practices is amultiple site organization consisting of ambulatory clinics and hospital sitesin [place], [place], [place] and [place]. This disclosure is being madepursuant to the Care Everywhere program and may not contain all information available regarding this patient. Last updated 18.[facility] Allergies Active Allergy Reactions Criticality Noted Date Comments Aspirin GI Discomfort 01/28/2020 Medications * Be aware that medications may not be up to date on this document. Alwaysverify current medications with the patient. Medication Sig Dispensed Refills Start Date End Date Status albuterol HFA (PROVENTIL;VENTOLIN;NV OAIR) 108 (90 Base) MCG/ACT inhaler Inhale 10 g by mouth as needed 04/10/2020 Active montelukast (SINGULAIR) 10 MG tablet Take 10 tablets by mouth 2 times daily 04/10/2020 Active fluticasone propionate (FLONASE) 50 MCG/ACT nasal spray [place] 180 sprays into each nostril 1 Before [...] to complete this topic MENINGOCOCCAL (Group B) VACC INE SHARED DECISION-MAKING Aged Out No longer eligibl e based on patient's age to complete this topic MENINGOCOCCAL GROUPS A/C/Y/W VACCINE Aged Out No longer eligible b ased on patient's age to complete this topic Care Teams Foundation Drill Operator Helper Relationship Specialty Start Date End Date Gildardo Dolan MD PCP - General 02/26/20 Gildardo Dolan MD 02/26/20
--- OUTSIDE RECORDS SUMMARY | 2024-09-26 19:13 | XMS_ITS | Patient Health Record ---
Author Organization [facility] Address [address] [place], [place] [id number] Care Team Providers Care Drilling Field Professional Name Role Phone Eric Mar Unavailable Unavailable Allergies No Known Allergies Reason For Referral No Information Medications Medication SIG (Take, Route, Frequency, Duration) Notes Start Date End Date Status methylPREDNISolone 4 MG as directed Orally Dispe nse one pack 11/07/2022 Active Social History Tobacco Use: Social History Observation Description Date Details (start date - stop date) Current Smoker NA - NA Tobacco Use/Smoking Question Answer Notes Tobacco use: current smoker Plan Of Treatment No Information Insurance Providers Payer Name Payer Address Payer Phone Subscriber Number Group Number Insured Name Patient Relationship to Insured Coverage Start Date Coverage End Date [employer] [address] [place] [address] [id number] SHARAD REED Self - patient is the insured Medical (General) History Medical History History ICD Code acid reflux anemia asthma - mild intermittent Surgical History Surgery Date(Month/Year) Tubal Ligation Gall Bladder tonsillectomy
--- OUTSIDE RECORDS SUMMARY | 2024-09-26 19:13 | XMS_ITS | Clinical Summary ---
Author Organization [facility] [place] [address] [place] Address [address] [place] [id number] Care Team Providers Care Slab Depiler Operator Name Role Phone Eric Mar MD Unavailable [phone] Eric Mar MD Primary Care Provider [phone] Allergies Active Allergy Reactions Criticality Noted Date [...] Date Mass of left breast 11/24/2023 Immunizations Immunization Administration Dates Next Due Pneumococcal Conjugate Pcv20 [...] on file Legal Sex Female 11:01 AM SPECIALIST ICU Gender Identity Female 11/21/2023 5:43 PM CDT Sexual Orientation Straight 11/21/2023 5: 43 PM CDT Obstetrics History Last Filed Vital Signs Vital Sign Reading Time Taken Comments Blood Pressure 100/80 08/03/2023 11:36 AM SPECIALIST ICU Pulse 83 08/03/2023 11:36 AM SPECIALIST ICU Temperature 37.1 C (98.8 F) 08/03/2023 11:36 AM SPECIALIST ICU Respiratory Rate 24 08/03/2023 11:36 AM SPECIALIST ICU Oxygen Saturation 99% 08/03/2023 11:36 AM SPECIALIST ICU Inhaled Oxygen Concentration - - Weight 72.6 kg (160 lb 0.9 oz) 05/27/2024 8:49 A M SPECIALIST ICU Height 167.6 cm (5' 5.98 ) 05/27/2024 8:49 AM CS T Body Mass Index 25.85 05/27/2024 8:49 AM SPECIALIST ICU Plan of Treatment Health Maintenance Due Date Last Done Comments Breast Cancer Screening-Mammogram 1973 Cervical Cancer Screening 1973 Colon Cancer Screening-Colonoscopy 1973 Depression Screening 1973 Hepatitis C Screening 1973 Hepatitis B Screening 12/04/1991 Regular Well Visit/Exam 18-64 12/04/1991 Zoster Vaccine (1 of 2) 12/04/2023 Covid-19 Vaccine (2023-2 5 season) 2024 06/17/2023, 06/03/2022, 06/15/2021, Additional history exists Influenza Vaccine (#1) 2024 DTaP/Tdap/Td Vaccine (2 - Td or Tdap) 05/14/2024 05/14/2014, 02/24/2000 Pneumococcal vaccine <65 Completed 06/17/2023 Insurance [facility] Care Teams Slab Depiler Operator Relationship Specialty Start Date End Date Eric Mar MD PCP - General Internal Medicine 11/23/23 Eric Mar MD Referring Physician Internal Medicine 10/02/23
--- OUTSIDE RECORDS SUMMARY | 2024-09-26 19:13 | XMS_ITS | Referral Summary ---
Author Organization [facility] [place] [address] Address [address] [place] [address] Care Team Providers Care Take Away Attendant Name Role Phone Eric Mar MD Unavailable [phone] Eric Mar MD Primary Care Provider [phone] Allergies Active Allergy Reactions Criticality Noted Date [...] on file Legal Sex Female 11:01 AM DISPATCHER CLERK Gender Identity Female 11/21/2023 5:43 PM CDT Sexual Orientation Straight 11/21/2023 5: 43 PM CDT Last Filed Vital Signs Vital Sign Reading Time Taken Comments Blood Pressure 100/80 08/03/2023 11:36 AM DISPATCHER CLERK Pulse 83 08/03/2023 11:36 AM DISPATCHER CLERK Temperature 37.1 C (98.8 F) 08/03/2023 11:36 AM DISPATCHER CLERK Respiratory Rate 24 08/03/2023 11:36 AM DISPATCHER CLERK Oxygen Saturation 99% 08/03/2023 11:36 AM DISPATCHER CLERK Inhaled Oxygen Concentration - - Weight 72.6 kg (160 lb 0.9 oz) 05/27/2024 8:49 A M DISPATCHER CLERK Height 167.6 cm (5' 5.98 ) 05/27/2024 8:49 AM CS T Body Mass Index 25.85 05/27/2024 8:49 AM DISPATCHER CLERK Plan of Treatment Not on file Insurance [facility] Care Teams Take Away Attendant Relationship Specialty Start Date End Date Eric Mar MD PCP - General Internal Medicine 11/23/23 Eric Mar MD Referring Physician Internal Medicine 10/02/23
[2024-09-26 19:40] LABS: Hematocrit 39.5 % (35.0-49.0); Hemoglobin 12.5 g/dL (12.0-15.0); Mean Corpuscular HGB Conc 31.6 g/dL (32-36); Mean Corpuscular Volume 94.7 fL (78.0-102.0); Mean Platelet Volume 9.9 fl (9.2-11.8); Platelet Count Result 323 K/mm3 (150-420); Red Blood Count 4.17 M/mm3 (4.20-5.40); Red Cell Distribution Width 13.3 % (11.6-14.4); White Blood Count 7.7 K/mm3 (4.8-10.8)
[2024-09-26 20:07] LABS: Alanine Aminotransferase 18 U/L (14-59); Albumin Level 3.8 g/dL (3.4-5.0); Alkaline Phosphatase 46 U/L (46-116); Anion Gap 6 mmol/L (4-12); Aspartate Amino Transferase < 10 U/L (15-37); Bilirubin,Total 0.2 mg/dL (0.00-1.00); Blood Urea Nitrogen 13 mg/dL (7-18); Calcium 9.3 mg/dL (8.5-10.1); Carbon Dioxide 27 mmol/L (21-32); Chloride 101 mmol/L (98-108); Estimated Glomerular Filt Rate > 60; Free T4 Free Thyroxine 0.87 ng/dL (0.76-1.46); Glucose 89 mg/dL (70-99); Osmolality Calculated 277 mOsm/kg (285-295); Potassium 3.2 mmol/L (3.5-5.1); Sodium 134 mmol/L (136-145); Thyroid Stimulating Hormone 4.06 uIU/mL (0.36-3.74); Total Protein 6.8 g/dL (6.4-8.2)
[2024-09-26 20:10] LABS: CRP < 0.5 mg/dL (0.0-0.9); Free T3 2.34 pg/mL (2.18-3.98)
[2024-09-29 05:39] LABS: Immunoglobulin A 92 mg/dL (47-310); Immunoglobulin G 600 mg/dL (600-1640); Immunoglobulin M 125 mg/dL (50-300)
== END 2024-09-26 19:10 | disposition home or self-care (01) ==
PROVIDERS: PCP Internal Medicine; Visit Provider Internal Medicine
DX: R53.83 Other fatigue (principal); J32.9 Chronic sinusitis, unspecified; J06.9 Acute upper respiratory infection, unspecified; Z86.16 Personal history of COVID-19
CPT/HCPCS: 36415; 80053; 82784; 84439; 84443; 84481; 85027; 86038; 86140

== ENCOUNTER 2025-02-28 08:26 | Outpatient (CLI) | payer OTHER, SELFPAY ==
--- OUTSIDE RECORDS SUMMARY | 2019-08-28 01:00 | XMS_ITS | Encounter Summary ---
Author Organization [facility] Healthcare Address [address] [place] [address] Care Team Providers Care Experimental Technician Name Role Phone Unavailable Primary Care Provider Unavailabl e Reason for Visit * Diagnostic Imaging (Routine) - Closed Specialty Diagnoses / Procedures Referred By Contac t Referred To Contact Procedures Breast Imaging Screening Outside Reference Transcribed Order, Provider Referral ID Status Reason Start Date Expiration Date Visits Re quested Visits Authorized [id number] Closed 10/13/2023 11/11/2024 1 1 Encounter Details Date Type Department Care Team (Late st Contact Info) Description 08/28/2019 Hospital Encounter [facility] [address] [place] [address] [phone] Social History Tobacco Use Types Packs/Day Years Used Date Smoking Tobacco: Every Day Cigarettes AUDIT-C Answer Date Recorded Q1: How often do you have a drink containing alc ohol? Monthly or less 11/23/2023 Q2: How many drinks containi ng alcohol do you have on a typical day when you are drinking? 1 or 2 11/23/2023 Q3: How often do you have si x or more drinks on one occasion? Less than monthly 11/23/2023 Comments No Sex and Gender Information Value Date Recorded Sex Assigned at Not on file Legal Sex Female 11:01 AM COMMUNITY SERVICE MANAGER Gender Identity Female 11/21/2023 5:43 PM CDT Sexual Orientation Straight 11/21/2023 5: 43 PM CDT documented as of this encounter Functional Status * AUDIT-C Score Answer Date of Assessment Author 2 11/23/2023 1:26 PM CDT Zhane Quintero CMA * Question Answer Date of Assessment Author Q1: How often do you have a drink containing alcohol? Monthly or less 11/23/2023 1:26 PM Zhane Mccormack CMA Q2: How many drinks containing alcohol do you have on a typical day when you are drinking? 1 or 2 11/23/2023 1:26 PM Zhane Mccormack CMA Q3: How often do you have six or more drinks on one occasion? Less than monthly 11/23/2023 1:26 PM Zhane Mccormack CMA documented as of this encounter Plan of Treatment Not on file documented as of this encounter Procedures Procedure Name Priority Date/Time Associated Diagnosis Comments BREAST IMAGING MG SCREENING OUTSIDE REFERENCE Routine 08/28/2019 12:00 AM COMMUNITY SERVICE MANAGER documented in this encounter Results * Breast Imaging Screening Outside Reference (08/28/2019 12:00 AM COMMUNITY SERVICE MANAGER) Impressions [facility] - 10/13/2023 12:49 PM CDT These images are for Reference purposes only and have not been reviewed by [facility]. There will be no report generated by a [facility] Radiologist. Narrative [facility] - 10/13/2023 12:49 PM CDT EXAMINATION: Images For Reference Purposes Only us Provider Transcribed Order IMG MAMMO PROCEDURES Final Result [facility] documented in this encounter Visit Diagnoses Not on filedocumented in this encounter Additional Health Concerns Infection Onset Date Last Indicated Resolved Time COVID: Suspected 08/03/2023 08/03/2023 08/03/2023 11:52 AM COMMUNITY SERVICE MANAGER COVID: Suspected 08/03/2023 08/03/2023 08/03/2023 10:31 PM COMMUNITY SERVICE MANAGER documented as of this encounter
--- OUTSIDE RECORDS SUMMARY | 2020-08-31 01:00 | XMS_ITS | Encounter Summary ---
Author Organization [facility] Healthcare Address [address] [place] [address] Care Team Providers Care Power Saw Operator Name Role Phone Unavailable Primary Care Provider Unavailabl e Reason for Visit * Diagnostic Imaging (Routine) - Closed Specialty Diagnoses / Procedures Referred By Contac t Referred To Contact Procedures Breast Imaging Screening Outside Reference Transcribed Order, Provider Referral ID Status Reason Start Date Expiration Date Visits Re quested Visits Authorized [id number] Closed 10/12/2023 11/10/2024 1 1 Encounter Details Date Type Department Care Team (Late st Contact Info) Description 08/31/2020 Hospital Encounter [facility] [address] [place] [phone] Social History Tobacco Use Types Packs/Day Years [...] on file Legal Sex Female 11:01 AM OBGYN NURSE Gender Identity Female 11/21/2023 5:43 PM CDT [...] BREAST IMAGING MG SCREENING OUTSIDE REFERENCE Routine 08/31/2020 12:00 AM OBGYN NURSE documented in this encounter Results * Breast Imaging Screening Outside Reference (08/31/2020 12:00 AM OBGYN NURSE) Impressions [facility] - 10/12/2023 11:14 AM CDT These images are for Reference purposes only and have not been reviewed by [facility]. There will be no report generated by a [facility] Radiologist. Narrative [facility] - 10/12/2023 11:14 AM CDT EXAMINATION: Images For Reference Purposes Only us Provider Transcribed Order IMG MAMMO PROCEDURES Final Result [facility] documented in this encounter Visit Diagnoses Not on filedocumented in this encounter Additional Health Concerns Infection Onset Date Last Indicated Resolved Time COVID: Suspected 08/03/2023 08/03/2023 08/03/2023 11:52 AM OBGYN NURSE COVID: Suspected 08/03/2023 08/03/2023 08/03/2023 10:31 PM OBGYN NURSE documented as of this encounter
--- NOTE | ~2025-02-28 | CT_ITS ---
EXAMINATION: CT sinus wo con DATE: 02/28/2025 08:39 INDICATION: Chronic sinusitis TECHNIQUE: Computed tomography (CT) of the paranasal sinuses was performed without intravenous contrast. The dose-length product was 316.52 mGy-cm. Automated exposure control and iterative reconstruction technique were employed. COMPARISON: None FINDINGS: Paranasal sinuses and mastoids are pneumatized. No depressed skull fracture. No significant mucosal thickening, air-fluid level or mucoperiosteal reaction. There is a small mucous retention cyst right maxillary sinus. No significant nasal septal deviation. The ostiomeatal units are patent. IMPRESSION: 1. Small mucous retention cyst right maxillary sinus. Reviewed, dictated and finalized at location O.
--- OUTSIDE RECORDS SUMMARY | 2025-02-28 08:30 | XMS_ITS | Clinical Summary ---
Author Organization [facility] Address [address] [place] [address] Care Team Providers Care Marketing Services Coordinator Name Role Phone Gildardo Dolan MD Primary Care Provider [phone] Gildardo Dolan MD Unavailable [phone] Source Comments [facility],non-owned Affiliates and Associated Physician Practices is amultiple site organization consisting of ambulatory clinics and hospital sitesin [place], [place], [place] and [place]. This disclosure is being madepursuant to the Care Everywhere program and may not contain all information available regarding this patient. Last updated 18.[facility] Allergies Active Allergy Reactions Criticality Noted Date Comments Aspirin GI Discomfort 01/28/2020 Medications * Be aware that medications may not be up to date on this document. Alwaysverify current medications with the patient. albuterol HFA (PROVENTIL;VENT STACEY;PROAIR) 108 (90 Base) MCG/ACT inhaler Inhale 10 g by mouth as needed 04/10/2020 Active montelukast (SINGULAIR) 10 MG tablet Take 10 tablets by mouth 2 times daily 04/10/2020 Active fluticasone propionate (FLONASE) 50 MCG/ACT nasal spray [place] 180 sprays into each nostril 1 Before [...] = 0.6 oz pur e alcohol) 6 Comments Unknown Sex and Gender Information Value Date Recorded Sex Assigned at Not on file Legal Sex Female 4:06 AM CDT Gender Identity Not on file Sexual Orientation [...] SCREENING 1973 LIPID TESTING 1973 MAMMOGRAM 1973 HIV SCREENING 1988 HEPATITIS C SCREENING 11/29/1991 DTAP/TDAP/TD VACCINES (1 - Tdap) 1992 HEPATITIS B VACCINE (1 of 3 - 19+ 3-dose series) 1992 PNEUMOCOCCAL VACCINE 50+ (1 of 2 - PCV) 1992 PAP SMEAR 1994 ZOSTER VACCINE (1 of 2) 12/04/2023 COVID-19 VACCINE ( - 2023-2 5 season) 2024 DEPRESSION SCREENING 07/03/2024 INFLUENZA VACCINE (#1) 2025 HIB VACCINE Aged Out No longer eligi [...] on patient's age to complete this topic Insurance [facility] SELF PAY NO INSURANCE Member Subscriber Plan / Payer (Ef fective for All Dates) Name:Ree Haider Member ID:Not on file Relation to Subscriber:Not on file Name:REE HAIDER Subscriber ID:Not on file (Home) Address: [address] [place] [address] Payer ID:Not on file Group ID:Not on file Type:Self Pay Address: [place], [place] Care Teams Marketing Services Coordinator Relationship Specialty Start Date End Date Gildardo Dolan MD PCP - General 02/26/20 Gildardo Dolan MD 02/26/20
--- OUTSIDE RECORDS SUMMARY | 2025-02-28 08:30 | XMS_ITS | Patient Health Record ---
Author Organization [facility] Address [address] [place], [place] [id number] Care Team Providers Care Revenue Field Agent Name Role Phone Eric Mar Unavailable Unavailable [...] Date Coverage End Date [employer] [address] [place] [address] [id number] SHARAD REED Self - patient is the insured Medical (General) History Medical History History ICD Code acid reflux anemia asthma - mild intermittent Surgical History Surgery Date(Month/Year) Tubal Ligation Gall Bladder tonsillectomy
--- OUTSIDE RECORDS SUMMARY | 2025-02-28 08:30 | XMS_ITS | Clinical Summary ---
Author Organization [facility] [place] [address] Address [address] [place] [phone] Care Team Providers Care Director Of Alumni Relations Name Role Phone Eric Mar MD Unavailable [phone] Eric Mar MD Primary Care Provider [phone] Allergies Active Allergy Reactions Criticality Noted Date [...] Encounters Date Type Department Care Team Description 02/12/2025 8:27 AM CDT - 02/12/2025 11:59 PM CDT Hospital Encounter [facility] Breast Imaging [facility] ([facility]) [address] [place] [id number] Mass of left breast, unspecified quadrant; Abnormal finding on breast imaging Discharge Disposition: Discharge to home or self care 02/12/2025 8:27 AM CDT - 02/12/2025 11:59 PM CDT Hospital Encounter [facility] Breast Imaging [facility] ([facility]) [address] [place] [id number] Mass of left breast, unspecified quadrant; Abnormal finding on breast imaging Discharge Disposition: Discharge to home or self care from Last 3 Months Immunizations Immunization Administration Dates Next Due Pneumococcal [...] on file Legal Sex Female 11:01 AM LANGUAGE ARTS TEACHER Gender Identity Female 11/21/2023 5:43 PM CDT Sexual Orientation Straight 11/21/2023 5: 43 PM CDT Obstetrics History Para Term AB IAB SAB Ectopic Multiple Livin g Live Births 0 0 0 0 0 0 0 0 0 0 0 Last Filed Vital Signs Vital Sign Reading Time Taken Comments Blood Pressure 100/80 08/03/2023 11:36 AM LANGUAGE ARTS TEACHER Pulse 83 08/03/2023 11:36 AM LANGUAGE ARTS TEACHER Temperature 37.1 C (98.8 F) 08/03/2023 11:36 AM LANGUAGE ARTS TEACHER Respiratory Rate 24 08/03/2023 11:36 AM LANGUAGE ARTS TEACHER Oxygen Saturation 99% 08/03/2023 11:36 AM LANGUAGE ARTS TEACHER Inhaled Oxygen Concentration - - Weight 74.8 kg (165 lb) 02/12/2025 8:40 AM CDT Height 167.6 cm (5' 5.98) 05/27/2024 8:49 AM CS T Body Mass Index 26.64 05/27/2024 8:49 AM LANGUAGE ARTS TEACHER Plan of Treatment Health Maintenance Due Date Last Done Comments Cervical Cancer Screening 1973 Colon Cancer Screening-Colonoscopy 1973 Depression Screening 1973 Hepatitis C Screening 1973 Hepatitis B Screening 12/04/1991 Regular Well Visit/Exam 18-64 12/04/1991 Zoster Vaccine (1 of 2) 12/04/2023 Covid-19 Vaccine (2023-2 5 season) 2024 06/17/2023, 06/03/2022, 06/15/2021, Additional history exists DTaP/Tdap/Td Vaccine (2 - Td or Tdap) 05/14/2024 05/14/2014, 02/24/2000 Influenza Vaccine (#1) 2025 Breast Cancer Screening-Mammogram 02/12/2026 025 Pneumococcal vaccine <65 Completed 06/17/2023 Procedures Procedure Name Priority Date/Time Associated Diagnosis Comments US BREAST LEFT LIMITED Schedule Routine, Read Routine (OP Routine) 02/12/2025 9:44 AM CDT Mass of left breast, unspecified quadrant Abnormal finding on breast imaging DIAGNOSTIC MAMMOGRAM BILATERAL [place] Schedule Routine, Read Routine (OP Routine) 02/12/2025 9:17 AM CDT Mass of left breast, unspecified quadrant Abnormal finding on breast imaging from Last 3 Months Results * US Breast Left Limited (02/12/2025 9:44 AM CDT) Anatomical Region Laterality Modality Breast Left Ultrasound 02/12/2025 10:2 3 AM CDT Impressions 02/12/2025 1:25 PM CDT 1. Stable size and appearance of a cluster of cysts in the left breast at the 8:30 o'clock position, 6 cm from the nipple. 2. No evidence of malignancy in the right breast. OVERALL FINAL ASSESSMENT: BI-RADS Category 2: Benign. RECOMMENDATION: Annual screening mammography is recommended. Dr. Mauro Montoya M.D. discussed the above findings and recommendations with the patient, who expressed her understanding of the management plan. The radiology attending physician has personally reviewed this study, and had reviewed and/or edited this written report and agrees with it. Electronically signed by: MD Megha Kern 02/12/2025 1:25 PM CDT EXAMINATION: BILATERAL DIGITAL DIAGNOSTIC MAMMOGRAM INCLUDING CAD AND BILATERAL DIGITAL BREAST TOMOSYNTHESIS; LEFT BREAST SONOGRAM HISTORY: 49-year-old woman with follow-up for a probable complex cyst/cluster of cysts in the left breast initially documented on outside hospital breast ultrasound dated 09/29/2023 (labeled as 7:00 4 cm from nipple in outside hospital imaging, and 8:30 6 cm from nipple in our hospital). The patient is also due for her annual mammography. No family history of breast or ovarian cancer. COMPARISON: Prior breast ultrasound dated 05/27/2024, as well as mammograms most recently dated 10/13/2023, dating back to 08/28/2019. TECHNIQUE: Full field digital mammographic views of BOTH breasts were performed, including computer aided detection (CAD) and BILATERAL digital breast tomosynthesis (DBT). Directed ultrasound evaluation of the LEFT breast was performed. BREAST PARENCHYMAL COMPOSITION: There are scattered areas of fibroglandular density. BILATERAL MAMMOGRAM FINDINGS: There is no suspicious abnormality or significant change in the RIGHT breast. There are 2 similar-appearing, circumscribed masses in the lower, inner left breast at middle depth. The lateral and slightly anterior one corresponds to a simple cyst on prior ultrasound. The medial and slightly posterior one corresponds to a probable complicated cyst/cluster of cysts. This was further evaluated by the targeted ultrasound. No new suspicious findings are identified in the left breast. LEFT SONOGRAM FINDINGS: Targeted sonographic evaluation was performed of the left breast at the 8:30 o'clock position, 6 cm from the nipple. There is unchanged size and appearance of a 8 x 4 x 5 mm probable cluster of cysts in the left breast at the 8:30 o'clock position, 6 cm from the nipple, previously 7 x 4 x 5 cm on 11/23/2023. The simple cyst in the 8:00 left breast as 3 cm from nipple was also reidentified. us Yoana Amaya NP IMG MAMMO PROCEDURES Final Result * Diagnostic Mammogram Bilateral [place] (02/12/2025 9:17 AM CDT) Anatomical Region Laterality Modality Breast Bilateral Mammography 02/12/2025 1:25 PM CDT Impressions 02/12/2025 1:25 PM CDT 1. Stable size and appearance of a cluster of cysts in the left breast at the 8:30 o'clock position, 6 cm from the nipple. 2. No evidence of malignancy in the right breast. OVERALL FINAL ASSESSMENT: BI-RADS Category 2: Benign. RECOMMENDATION: Annual screening mammography is recommended. Dr. Mauro Montoya M.D. discussed the above findings and recommendations with the patient, who expressed her understanding of the management plan. The radiology attending physician has personally reviewed this study, and had reviewed and/or edited this written report and agrees with it. Electronically signed by: Savi Otero MD Narrative 02/12/2025 1:25 PM CDT EXAMINATION: BILATERAL DIGITAL DIAGNOSTIC MAMMOGRAM INCLUDING CAD AND BILATERAL DIGITAL BREAST TOMOSYNTHESIS; LEFT BREAST SONOGRAM HISTORY: 49-year-old woman with follow-up for a probable complex cyst/cluster of cysts in the left breast initially documented on outside hospital breast ultrasound dated 09/29/2023 (labeled as 7:00 4 cm from nipple in outside hospital imaging, and 8:30 6 cm from nipple in our hospital). The patient is also due for her annual mammography. No family history of breast or ovarian cancer. COMPARISON: Prior breast ultrasound dated 05/27/2024, as well as mammograms most recently dated 10/13/2023, dating back to 08/28/2019. TECHNIQUE: Full field digital mammographic views of BOTH breasts were performed, including computer aided detection (CAD) and BILATERAL digital breast tomosynthesis (DBT). Directed ultrasound evaluation of the LEFT breast was performed. BREAST PARENCHYMAL COMPOSITION: There are scattered areas of fibroglandular density. BILATERAL MAMMOGRAM FINDINGS: There is no suspicious abnormality or significant change in the RIGHT breast. There are 2 similar-appearing, circumscribed masses in the lower, inner left breast at middle depth. The lateral and slightly anterior one corresponds to a simple cyst on prior ultrasound. The medial and slightly posterior one corresponds to a probable complicated cyst/cluster of cysts. This was further evaluated by the targeted ultrasound. No new suspicious findings are identified in the left breast. LEFT SONOGRAM FINDINGS: Targeted sonographic evaluation was performed of the left breast at the 8:30 o'clock position, 6 cm from the nipple. There is unchanged size and appearance of a 8 x 4 x 5 mm probable cluster of cysts in the left breast at the 8:30 o'clock position, 6 cm from the nipple, previously 7 x 4 x 5 cm on 11/23/2023. The simple cyst in the 8:00 left breast as 3 cm from nipple was also reidentified. Yoana Amaya NP IMG MAMMO PROCEDURES Final Result from Last 3 Months [facility] Care Teams Director Of Alumni Relations Relationship Specialty Start Date End Date Eric Mar MD PCP - General Internal Medicine 11/23/23 Eric Mar MD Referring Physician Internal Medicine 10/02/23
== END 2025-02-28 08:27 | disposition home or self-care (01) ==
PROVIDERS: PCP Internal Medicine; Visit Provider Otolaryngology Otolaryngology/Facial Plastic Surgery
DX: J32.9 Chronic sinusitis, unspecified (principal)
CPT/HCPCS: 70486

== ENCOUNTER 2025-04-04 01:26 | Day surgery (SDC) | payer OTHER, SELFPAY ==
--- OUTSIDE RECORDS SUMMARY | 2019-08-28 01:00 | XMS_ITS | Encounter Summary ---
Author Organization [facility] Healthcare Address [address] [place] [address] Care Team Providers Care Hollow Tile Partition Erector Name Role Phone Unavailable Primary Care Provider Unavailabl e Reason for Visit * Diagnostic Imaging (Routine) - Closed Specialty Diagnoses / Procedures Referred By Contac t Referred To Contact Procedures Breast Imaging Screening Outside Reference Transcribed Order, Provider Referral ID Status Reason Start Date Expiration Date Visits Re quested Visits Authorized [id number] Closed 10/13/2023 11/11/2024 1 1 Encounter Details Date Type Department Care Team (Late st Contact Info) Description 08/28/2019 Hospital Encounter [facility] [address] [place] [address] [phone] Social History Tobacco Use Types Packs/Day Years [...] on file Legal Sex Female 11:01 AM ELECTROENCEPHALOGRAPHIC TECHNICIAN Gender Identity Female 11/21/2023 5:43 PM CDT [...] occasion? Less than monthly 11/23/2023 1:26 PM Zhaen Mccormack CMA documented as of this encounter Plan of Treatment Not on file documented as of this encounter Procedures Procedure Name Priority Date/Time Associated Diagnosis Comments BREAST IMAGING MG SCREENING OUTSIDE REFERENCE Routine 08/28/2019 12:00 AM ELECTROENCEPHALOGRAPHIC TECHNICIAN documented in this encounter Results * Breast Imaging Screening Outside Reference (08/28/2019 12:00 AM ELECTROENCEPHALOGRAPHIC TECHNICIAN) Impressions [facility] - 10/13/2023 12:49 PM CDT These images are for Reference purposes only and have not been reviewed by [facility]. There will be no report generated by a [facility] Radiologist. Narrative [facility] - 10/13/2023 12:49 PM CDT EXAMINATION: Images For Reference Purposes Only us Provider Transcribed Order IMG MAMMO PROCEDURES Final Result [facility] documented in this encounter Visit Diagnoses Not on filedocumented in this encounter Additional Health Concerns Infection Onset Date Last Indicated Resolved Time COVID: Suspected 08/03/2023 08/03/2023 08/03/2023 11:52 AM ELECTROENCEPHALOGRAPHIC TECHNICIAN COVID: Suspected 08/03/2023 08/03/2023 08/03/2023 10:31 PM ELECTROENCEPHALOGRAPHIC TECHNICIAN documented as of this encounter
--- OUTSIDE RECORDS SUMMARY | 2020-08-31 01:00 | XMS_ITS | Encounter Summary ---
Author Organization [facility] Healthcare Address [address] [place] [address] Care Team Providers Care Engineering Project Designer Name Role Phone Unavailable Primary Care Provider Unavailabl e Reason for Visit * Diagnostic Imaging (Routine) - Closed Specialty Diagnoses / Procedures Referred By Contac t Referred To Contact Procedures Breast Imaging Screening Outside Reference Transcribed Order, Provider Referral ID Status Reason Start Date Expiration Date Visits Re quested Visits Authorized [id number] Closed 10/12/2023 11/10/2024 1 1 Encounter Details Date Type Department Care Team (Late st Contact Info) Description 08/31/2020 Hospital Encounter [facility] [address] [place] [phone] Social History Tobacco Use Types Packs/Day Years [...] on file Legal Sex Female 11:01 AM CHIEF LIFESTYLE OFFICER Gender Identity Female 11/21/2023 5:43 PM CDT [...] SCREENING OUTSIDE REFERENCE Routine 08/31/2020 12:00 AM CHIEF LIFESTYLE OFFICER documented in this encounter Results * Breast Imaging Screening Outside Reference (08/31/2020 12:00 AM CHIEF LIFESTYLE OFFICER) Impressions [facility] - 10/12/2023 11:14 AM CDT These images are for Reference purposes only and have not been reviewed by [facility]. There will be no report generated by a [facility] Radiologist. Narrative [facility] - 10/12/2023 11:14 AM CDT EXAMINATION: Images For Reference Purposes Only us Provider Transcribed Order IMG MAMMO PROCEDURES Final Result [facility] documented in this encounter Visit Diagnoses Not on filedocumented in this encounter Additional Health Concerns Infection Onset Date Last Indicated Resolved Time COVID: Suspected 08/03/2023 08/03/2023 08/03/2023 11:52 AM CHIEF LIFESTYLE OFFICER COVID: Suspected 08/03/2023 08/03/2023 08/03/2023 10:31 PM CHIEF LIFESTYLE OFFICER documented as of this encounter
[2025-03-28 14:13] VITALS: BMI 26.6
--- NOTE | 2025-03-28 14:22 | PC.NURSE ---
[facility] has started construction of its new state of the art ER which will open Spring 2026. With this, we anticipate parking may be a challenge for some our surgical patients and families. Parking spaces are limited but are available for all Surgical, obstetrics, and ER patients sharing this lot. If you arrive and find you are having a hard time finding a parking space, please note that we understand the challenges, please drive around the hospital and park near Hospital Entrance 1. When you enter this entrance, you can ask a volunteer to direct or take you back to the surgical waiting area to check in. We appreciate everyone?s understanding of these expected challenges while we build for your future. Report to the Outpatient Waiting Room, entrance under the green pavilion located off [address], at time _0730_ on date _[phone]_. Planned Procedure Time: _30_.? Time changes happen often and if your time is changed the preop area will call you the afternoon before. - You and your visitor will be asked to self-screen and do not enter if you have any COVID symptoms. Please call surgeon if you need to reschedule. - A mask is optional within the hospital at this time. Patients may have clear liquids (water, carbonated beverages, clear teas, apple juice) until 3 hours prior to surgery with a maximum of 20 ounces. - No food from midnight until time of surgery and no smoking, or chewing tobacco (or any form of nicotine). No chewing gum, candy or mints. Take only the following medications with a SIP of water on the morning of surgery: ___Verapamil, Escitalopram, Bupropion, and inhalers.___ DO NOT STOP ANY OF YOUR OTHER PRESCRIPTION MEDICATIONS PRIOR TO SURGERY EXCEPT THE FOLLOWING Hold all vitamins and supplements for 3 days per anesthesiologist. Medications to discontinue per physician Date to take last hehc___[phone]____ Please no make-up, nail malawian, hairspray, perfume, deodorant, or body powder the day of surgery.? No jewelry (including any body piercings) or valuables the day of surgery, leave them at home.? Please take a shower or bath the night before, or the morning of, surgery with an antibacterial soap.? Wear comfortable, loose fitting clothing.? - Jewelry must be removed prior to entering the operating room.? Rings and piercings that are not removed may be cut off. - The hospital will not accept responsibility for valuables.? - Please leave all valuables, including medications, at home the day of surgery. If you are going home after surgery, a licensed emt driver must drive you home.? - NO public transportation without another adult if you receive anesthesia. - We recommend that an adult stay with you for 24 hours following discharge. - We also recommend that you do not drive, make important decision, drink alcoholic beverages, or take any drugs that were not prescribed by your health care provider for at least 24 hours after your discharge time. Follow any additional instructions given to you from your surgeon. Telephone instructions given to __Carrie___and asked if any additional questions and then verbalized understanding. Patient advised to call surgeon office or pre surgery nurse liaison [phone] if any additional questions.
--- NOTE | 2025-04-03 15:33 | WPDANESEPPF ---
Anes - Initial Pre Proc Eval Procedure: Operation Date: 04/04/25 10:00 Proposed Procedures p Bilateral Submucous Resection of Inferior Turbinates, Bilateral Fracture Nasal Inferior Turbinates, Right Maxillary Antrostomy - Andrés Escobedo MD s Septoplasty - Andrés Escobedo MD Date/Time: 04/03/25 15:33 Surgeon: Andrés Escobedo MD Pre Op Diagnosis: Chr max sinusitis,hypertrophy, nasal turbinate Patient Data Age: 49 Gender: F Height: 1.68 m Weight: 75 kg Allergies Allergy/AdvReac Type Severity Reaction Status Date / Time Sulfa (Sulfonamide Allergy Severe Unknown Verified 04/04/25 09:34 Antibiotics) aspirin AdvReac Intermediate Other Verified 04/04/25 09:34 Home Medications ?Medication ?Instructions ?Recorded ?Confirmed ?Type multivitamin (Daily Multi-Vitamin 1 tablet PO DAILY 07/23/19 03/28/25 History tablet) montelukast 10 mg tablet 10 mg PO DAILY 09/01/21 03/28/25 History (Singulair) fexofenadine 180 mg tablet 180 mg PO DAILY 10/19/21 03/28/25 History escitalopram oxalate 20 mg tablet 20 mg PO DAILY 12/20/22 03/28/25 History albuterol sulfate 2.5 mg/3 mL 2.5 mg (3 mL) inhalation QID PRN 06/09/23 03/28/25 Rx (0.083 %) solution for nebulization shortness of breath or wheezing #360 mL cholecalciferol (vitamin D3) 25 25 mcg PO DAILY 06/09/23 03/28/25 History mcg (1,000 unit) capsule nebulizer accessories #1 ea 06/09/23 03/28/25 Rx Airsupra 90 mcg-80 mcg/actuation 2 inh inhalation QID 30 days #10.7 12/13/23 03/28/25 Rx HFA aerosol inhaler grams (albuterol-budesonide) epinephrine 0.3 mg/0.3 mL 0.3 mg (0.3 mL) IM ONCE #2 ea 01/22/24 03/28/25 Rx injection, auto-injector azelastine 137 mcg-fluticasone 50 1 spray intranasal BID #23 grams 02/08/24 03/28/25 Rx mcg/spray nasal spray (Dymista) fluticasone fur. 200 mcg-umeclid See Rx Instructions .Route 08/20/24 04/04/25 Rx 62.5 mcg-vilant 25 mcg .COMPLEX #60 ea inhalat.powder (Trelegy Ellipta) Fasenra Pen 30 mg/mL subcutaneous See Rx Instructions .Route 11/07/24 03/28/25 Rx auto-injector (benralizumab) .COMPLEX #1 mL bupropion HCl 150 mg 24 hr tablet, 150 mg PO QAM 12/11/24 03/28/25 History extended release rizatriptan 5 mg disintegrating 5 mg PO ONCE 12/11/24 03/28/25 History tablet verapamil 120 mg tablet,extended 120 mg PO DAILY 12/11/24 03/28/25 History release Patient hx anesthesia problems: none Family hx anesthesia problems: none Results Review: All pre-operative results and documents have been reviewed as part of the pre-operative evaluation. [facility] Past Medical History Medical History (Updated 03/14/25 @ 13:40 by Andrés Escobedo MD) Dysphonia Laryngopharyngeal reflux (LPR) VANDANA (obstructive sleep apnea) GERD (gastroesophageal reflux disease) Depression with anxiety Colon cancer screening Asthma HPV test positive Surgical History Surgical History H/O local excision of skin lesion 03/18/24 John Merida DO History of tonsillectomy History of cholecystectomy History of tubal ligation Family History Family History Mother Family history of pancreatic cancer Father Family history of malignant neoplasm of urinary bladder Family history of hypercholesterolemia Hypertension Alcoholism Depression Grandparent Family history of hypercholesterolemia Hypertension Cerebrovascular accident Carcinoma of colon, Onset Age: 56 Family history of genetic disorder Sibling Depression Grandparent Alcoholism Cancer Grandparent Alcoholism Hypertension Depression Heart disease Cerebrovascular accident Social History Social History Smoking packs per day: 0.5 Smoking cigarettes per day: 10.0 Years smoked: 25 Smoking pack-years: 12.50 Smoking status: Former smoker Tobacco type: cigarettes Second hand tobacco smoke exposure: Yes Smoking end date: 03/28/22 Alcohol intake: current Drinks per week: 6 Substance use type: does not use Do You Feel Safe in your Home?: Yes Lack of Transportation: No Lack of Food: Never True Current Housing: I Have Housing Concerned About Future Housing: No Difficulty Paying Gas/Electric Bills: No Difficulty Paying for Meds: No Currently Unemployed: No Education: Master's Degree or Higher Difficulty w/ Childcare or Family Care: No Living arrangements: with family Occupation/Education: occupation Additional occupation/education comments: [employer] Spiritual care concerns: No Anes - Eval Final PreProcedure Day of Procedure 04/03/25 15:33 Patient weight: overweight Heart: regular rate and rhythm Lungs: clear to auscultation Airway: Mallampati scale class III Neurological: alert and oriented Last oral intake: >/= 8 hours ASA classification: III Emergent: no Anesthetic plan: proceed Anesthesia type and monitoring: general ETT and standard monitoring Results Review: All pre-operative results and documents have been reviewed as part of the pre-operative evaluation. Informed Consent: The patient's anesthetic plan and its attendant risks and benefits were discussed with the patient/family/POA. Questions were solicited and answers provided to the satisfaction of the patient/family/POA.
[2025-04-04] VITALS (8 sets, daily range): BP systolic 109–137; BP diastolic 56–88; PULSE 42–76; RESP 14–18; TEMP 36.3–36.6; O2SAT 99–100
--- OUTSIDE RECORDS SUMMARY | 2025-04-04 01:29 | XMS_ITS | Clinical Summary ---
Author Organization [facility] Address [address] [place] [address] Care Team Providers Care Micro Paleontologist Name Role Phone Gildardo Dolan MD Primary Care Provider [phone] Gildardo Dolan MD Unavailable [phone] [facility],non-owned Affiliates and Associated Physician Practices is amultiple site organization consisting of ambulatory clinics and hospital sitesin [place], [place], [place] and [place]. This disclosure is being madepursuant to the Care Everywhere program and may not contain all information available regarding this patient. Last updated 18.[facility] Allergies Active Allergy Reactions Criticality Noted [...] fluticasone propionate (FLONASE) 50 MCG/ACT nasal spray [place] 180 sprays into each nostril 1 Before [...] 1994 ZOSTER VACCINE (1 of 2) 12/04/2023 DEPRESSION SCREENING 07/03/2024 COVID-19 VACCINE (1 - 2023-2 5 season) 2025 INFLUENZA VACCINE (#1) 2025 HIB VACCINE Aged [...] patient's age to complete this topic Insurance [facility] SELF PAY NO INSURANCE Member Subscriber Plan / Payer (Ef fective for All Dates) Name:Ree Haider Member ID:Not on file Relation to Subscriber:Not on file Name:REE HAIDER Subscriber ID:Not on file (Home) Address: [address] [place] [address] Payer ID:Not on file Group ID:Not on file Type:Self Pay Address: [place], [place] [employer] Care Teams Micro Paleontologist Relationship Specialty Start Date End Date Gildardo Dolan MD PCP - General 02/26/20 Gildardo Dolan MD 02/26/20
--- OUTSIDE RECORDS SUMMARY | 2025-04-04 01:29 | XMS_ITS | Clinical Summary ---
Author Organization [facility] [address] Address [address] [place] [id number] Care Team Providers Care Cloth Shrinking Tester Name Role Phone Eric Mar MD Unavailable [phone] Eric Mar MD Primary Care Provider [phone] Allergies Active Allergy Reactions Criticality Noted Date [...] - 02/12/2025 11:59 PM CDT Hospital Encounter [facility] ([facility] [address] [place] [phone] Mass of left breast, unspecified quadrant; Abnormal finding on breast imaging Discharge Disposition: Discharge to home or self care 02/12/2025 8:27 AM CDT - 02/12/2025 11:59 PM CDT Hospital Encounter [facility] ([facility]) [address] [place] [phone] Mass of left breast, unspecified quadrant; Abnormal [...] on file Legal Sex Female 11:01 AM PROGRESSIVE CARE UNIT REGISTERED NURSE Gender Identity Female 11/21/2023 5:43 PM CDT Sexual Orientation Straight 11/21/2023 5: 43 PM CDT Obstetrics History Para Term AB IAB SAB Ectopic Multiple Livin g Live Births 0 0 0 0 0 0 0 0 0 0 0 Last Filed Vital Signs Vital Sign Reading Time Taken Comments Blood Pressure 100/80 08/03/2023 11:36 AM PROGRESSIVE CARE UNIT REGISTERED NURSE Pulse 83 08/03/2023 11:36 AM PROGRESSIVE CARE UNIT REGISTERED NURSE Temperature 37.1 C (98.8 F) 08/03/2023 11:36 AM PROGRESSIVE CARE UNIT REGISTERED NURSE Respiratory Rate 24 08/03/2023 11:36 AM PROGRESSIVE CARE UNIT REGISTERED NURSE Oxygen Saturation 99% 08/03/2023 11:36 AM PROGRESSIVE CARE UNIT REGISTERED NURSE Inhaled Oxygen Concentration - - Weight 74.8 kg (165 lb) 02/12/2025 8:40 AM CDT Height 167.6 cm (5' 5.98) 05/27/2024 8:49 AM CS T Body Mass Index 26.64 05/27/2024 8:49 AM PROGRESSIVE CARE UNIT REGISTERED NURSE Plan of Treatment Health Maintenance Due Date Last Done Comments Cervical Cancer Screening 1973 Colon Cancer Screening-Colonoscopy 1973 Depression Screening 1973 Hepatitis C Screening 1973 Hepatitis B Screening 12/04/1991 Regular Well Visit/Exam 18-64 12/04/1991 Zoster Vaccine (1 of 2) 12/04/2023 DTaP/Tdap/Td Vaccine (2 - Td or Tdap) 05/14/2024 05/14/2014, 02/24/2000 Covid-19 Vaccine ( - 2024-2 6 season) 2025 06/17/2023, 06/03/2022, 06/15/2021, Additional history exists Influenza Vaccine (#1) 2025 Breast Cancer Screening-Mammogram [...] Final Result from Last 3 Months [facility] Care Teams Cloth Shrinking Tester Relationship Specialty Start Date End Date Eric Mar MD PCP - General Internal Medicine 11/23/23 Eric Mar MD Referring Physician Internal Medicine 10/02/23
--- NOTE | 2025-04-04 07:16 | WPDHPUPDATE1 ---
History and Physical Update Update Date/Time: 04/04/25 07:16 History and Physical has been reviewed, including an updated exam of the patient. There are NO changes in the patient's condition. Risks, benefits, and alternatives have been discussed and questions answered. Patient agrees to proceed with procedure. 49-year-old female with deviated nasal septum hypertrophy of nasal turbinates nasal congestion snoring and dysphonia. I have personally reviewed the imaging study the patient performed and i agree with the report however I need to add the presence of deviated nasal septum and severely enlarged nasal turbinates and right-sided ostiomeatal complex blockage I have also reviewed the imaging study with the patient CT sinuses 02/28/25 IMPRESSION: 1. Small mucous retention cyst right maxillary sinus. 1. Will order septoplasty bilateral inferior turbinate reduction+right maxillary antrostomy -Risk of septoplasty procedures were discussed with the patient which include but not limited to; Bleeding, infection, septal perforation, saddle nose deformity, intranasal scarring All the questions were answered to the best of my ability and the patient wished to proceed. The procedures will be scheduled in a timely fashion.
[2025-04-04] MEDS: LACTATED RINGERS 1,000 ML 30 ML IV CONT ×2 (08:30→12:43)
[2025-04-04] MEDS: OXYMETAZOLINE HCL 0.05% NAS 15 ML BTL (*BKC) 2 SPRAY NASAL ×3 (09:30→09:40)
[2025-04-04] MEDS: ACETAMINOPHEN 500 MG TABLET 1000 MG PO (09:36)
[2025-04-04 09:45] LABS: BEDSIDEPREGUCG Negative (Negative)
--- NOTE | 2025-04-04 09:47 | W.PM.PROC2 ---
Procedure Note - Detailed Date of Procedure 04/04/25 Pre-op Diagnosis chronic maxillary sinusitis deviated nasal septum hypertrophy of nasal turbinates Post-op Diagnosis Same Procedure Performed ? Endoscopic septoplasty . nasal endoscopy with maxillary antrostomy right . . Bilateral submucous resection inferior turbinate,partial or complete, any method ? Therapeutic fracture of the inferior turbinates bilaterally. Surgeon Andrés Escobedo MD Anesthesia General Description of Procedure The patient was seen in the preoperative area, informed consent was checked and confirmed. The patient was taken to the operating room, sedated and placed under general anesthesia with an endotracheal tube . Eyes were taped and were prepped and draped in the usual sterile fashion. The nose was examined, and the anterior septum was injected with 1% lidocaine with 1:100,000 epinephrine. [place] incision was made and a mucoperichondrial flap was elevated to expose the quadrangular cartilage and bony septum. Incision was then made anteriorly on the quadrangular cartilage to elevate the contralateral mucoperichondrial flap. The deviated quadrangular cartilage was excised with a Benedicto knife. At least 1 cm of dorsal and caudal strut of quadrangular was left in place. We resected the deviated bony septum with a [place] and a pituitary forceps. After adequate resection of the posterior-inferior bony septum, the mucoperichondrial Flap was laid back in anatomic position.Wild splints were placed in both nostrils and sutured using Prolyn ties. I proceeded to the endoscopic sinus procedure starting on the right side. The agger nasi area was injected with 1% lidocaine with 1:100,000 epinephrine. The body of the middle turbinate was injected with 1% lidocaine with 1:100,000 epinephrine. The middle turbinate was gently medialized and the uncinectomy was performed with a pediatric Lauren backbiter and the uncinectomy was completed with a shaver from the inferior-posterior attachment to the superior anterior attachment. Maxillary antrum was re-examined with a 30-degree scope. A ball probe was passed into the antrum and was further widened with a backbiter in the anterior-inferior and posterior direction . We proceeded with submucosal inferior turbinate reduction, starting on the right side, a stab incision was made anterior mucosa of inferior turbinate. Submucosal pocket was created along the length of the inferior turbinate and the microdebrider blade 2mm thick was introduced anteriorly and into the whole submucosal pocket. Microdebrider was then used to remove the hypertrophied bony parts of anterior turbinate head and soft tissue with the outer layer intact. The residual inferior turbinate was then out fractured using Boies elevator. We proceeded to the left side. A stab incision was made on the anterior mucosa of inferior turbinate. Submucosal pocket was created along the length of the inferior turbinate and the microdebrider blade 2 mm thick was introduced anteriorly and into the whole submucosal pocket. Microdebrider was then used to remove the hypertrophied bony parts of anterior turbinate head and soft tissue with the outer layer intact. The residual inferior turbinate was then out fractured using Boies elevator. The nose was then suctioned clean and at this point the care of the patient was then transferred to the anesthesiologist where the patient emerged from general anesthesia without complication. Estimated Blood Loss 20 (ml) Drains No Packing Yes (Merocel 3.5 cm ) Complications No immediate complications Condition Stable Disposition PACU [facility] Billing Surgery - Charge Forward: Surgery Billing
[2025-04-04] MEDS: ceFAZolin 1 GM in SODIUM CHLORIDE 0.9% IV 50 ML 100 ML IVPB (10:21)
[2025-04-04] MEDS: LIDO 1%/EPINEPHRINE 1:100,000 20 ML VIAL INFILTRATE (10:56)
[2025-04-04] MEDS: MUPIROCIN 2% OINT 22 GM TUBE 1 APPLIC EACH NARE (12:23)
[2025-04-04] MEDS: methylPREDNISolone ACETATE 40 MG/ML VIAL 20 MG IM (13:35)
[2025-04-04] MEDS: oxyCODONE HCL (*CRX) 5 MG TAB IR PO (13:54)
== END 2025-04-04 14:24 | disposition home or self-care (01) ==
PROVIDERS: PCP Internal Medicine; Visit Provider Otolaryngology Otolaryngology/Facial Plastic Surgery
PROC: (CPT 31256; principal; 2025-04-04 10:00)
PROC: (CPT 30520; 2025-04-04 10:00)
DX: J32.9 Chronic sinusitis, unspecified (principal); J34.3 Hypertrophy of nasal turbinates; J34.2 Deviated nasal septum; Z87.891 Personal history of nicotine dependence
CPT/HCPCS: 31256; 30520; 30140; A9270; J0690; J1010; J1100; J2003; J2004; J2250; J2405; J2704; J3010; J3301; J7050; J7120